=== PATIENT | female | born 1940 | race African-American/Black ===

== ENCOUNTER 2016-05-21 23:15 | Inpatient (IN) ==
[2016-05-22] MEDS ORDERED: SODIUM CHLORIDE 0.9% 500 ML IV STA (00:10)
--- NOTE | 2016-05-22 00:22 | Emergency Department Note ---
Aron Amin Brittany, am scribing for, and in the presence of, Vikash Echeverria MD 00:20. Juwan Amin Charles R, MD, personally performed the services described in this documentation, ascribed by Myah Sharp in my presence, and it is both accurate and complete . Arrival - Arrival Chief Complaint: Syncope ED Nursing Triage Note: C/O "feeling faint" Onset all day today. Pt denies any chest pain/shortness of breath or any other complaints. States she just feel like she is going to faint. Mode of Arrival: Stretcher Limitations: No Limitations Source: Patient, RN Notes Reviewed Time Seen by Provider: 05/22/16 00:00 - History of Present Illness HPI Narrative: Patient is a 75 y/o black female presenting to the ED with c/o syncopal episode earlier today. Family states that patient stated that she felt bad and went to stand up when she fell, unresponsive for about 5 minutes. They state that prior to syncopal episode patient was complaining of dizziness and feeling flushed. As of now patient states that she feels her normal. Daughter notes that earlier this month patient was diagnosed with Esophageal CA. Family reports that patient has not had an adequate PO intake, only liquids, due to difficulty swallowing, secondary to Esophageal CA. Family reports that patient has had some diarrhea, but deny any strange cravings, melena, hematochezia, dysuria, urgency, or frequency. Family states that upon exertion patient does get short- winded. Family reports that patient does have a history of DVT. She is a patient of Dr. Hollins and Dr. Sharp, she has an appointment with both tomorrow -per daughter. No other complaint/pain. Onset (ago): hour(s) Date of Last Menstrual Period: PM Allergies/Adverse Reactions: Allergies Allergy/AdvReac Type Severity Reaction Status Date / Time No Known Allergies Allergy Unverified 05/21/16 23:28 Home Medications: Home Medications Medication Instructions Recorded Confirmed Type Aspirin [Ecotrin] 81 mg PO DAILY 05/21/16 05/21/16 History Atorvastatin [Lipitor] 20 mg PO DAILY 05/21/16 05/21/16 History Calcium (Carb)/Vit D 600-400 1 tablet PO DAILY 05/21/16 05/21/16 History [Caltrate 600 + D] Ergocalciferol (Vitamin D2) 50,000 unit PO Q7D 05/21/16 05/21/16 History [Vitamin D2] Furosemide Tab [Lasix Tab] 40 mg PO DAILY 05/21/16 05/21/16 History HYDROcodone/ACETAMIN 5-325 [[place] 5 mg PO BID 05/21/16 05/21/16 History 5-325] Losartan/Hydrochlorothiazide 1 each PO DAILY 05/21/16 05/21/16 History [Losartan-Hctz 100-25 mg Tab] Pantoprazole Tab [Protonix Tab] 40 mg PO DAILY 05/21/16 05/21/16 History Potassium Chloride [Klor-Con] 40 meq PO BID 05/21/16 05/21/16 History amLODIPine [Norvasc] 10 mg PO DAILY 05/21/16 05/21/16 History Review of System - Review of System 12 point system: reviewed and no additional remarkable complaints except as stated - Review of System Constitutional: Present: other (decreased appetite) Respiratory: Present: respiratory distress Cardiovascular: Present: syncope Gastrointestinal: Present: diarrhea Neurological: Present: vertigo Medical,Surgical,& Family Hx - Medical History Cardio: History of: Hypertension - Social History Smoking Status: Never smoker Frequency of Alcohol Use: None Type of Drug Use: None Exam Vital Signs: Vital Signs Temperature 97.4 F L 05/21/16 23:15 Pulse Rate 83 05/21/16 23:47 Respiratory Rate 18 05/21/16 23:47 Blood Pressure 102/67 05/21/16 23:47 O2 Sat by Pulse Oximetry 97 05/21/16 23:15 - General General appearance: alert, in no apparent distress - Head Head exam: Present: atraumatic, normocephalic - Eye Eye exam: Present: normal appearance, PERRL, EOMI - ENT ENT exam: Present: mucous membranes dry, TM's normal bilaterally. Absent: mucous membranes moist - Neck Neck exam: Present: normal inspection, full ROM, trachea midline - Chest Chest inspection: Present: normal inspection, symmetric chest wall rise - Respiratory Respiratory exam: Present: normal lung sounds bilaterally. Absent: rales, rhonchi, wheezes - Cardiovascular Cardiovascular exam: Present: normal rhythm, bradycardia, normal heart sounds. Absent: regular rate - Abdominal Exam Abdominal exam: Present: soft, normal bowel sounds. Absent: distention, tenderness - Extremities Exam Extremities exam: Present: full ROM, pedal edema (+3) - Back Exam Back exam: Present: normal inspection, full ROM - Neurological Exam Neurological exam: Present: alert, oriented X3, CN II-XII intact. Absent: motor sensory deficit - Psychiatric Psychiatric exam: Present: flat affect - Skin Skin exam: Present: warm, dry Course - Consultations Consultation #1: Dr. Hammond will admit patient Time: 01:37 Results - Labs CBC & BMP: 05/22/16 00:09 05/22/16 00:09 Lab Results: I have reviewed the patients labs Labs: Laboratory Tests 05/22/16 00:09 Sodium 135 L Potassium 2.3 L* Chloride 92 L Carbon Dioxide 31 Anion Gap 14.3 BUN 5 L Creatinine 0.80 GFR Calculation 84 BUN/Creatinine Ratio 6.00 Glucose 146 H Calculated Osmolality 269.1 L Calcium 8.6 Magnesium 1.3 L Total Bilirubin 0.60 AST 24 ALT 18 Alkaline Phosphatase 54 Troponin I < 0.015 Total Protein 7.9 Albumin 3.0 L Globulin 4.9 H Albumin/Globulin Ratio 0.6 L Laboratory Tests 05/22/16 00:09 WBC 6.3 RBC 4.03 Hgb 10.1 L Hct 31.7 L MCV 78.7 L MCH 25 L MCHC 31.9 L RDW 15.2 Plt Count 319 MPV 9.2 L Neut % (Auto) 57.0 Lymph % (Auto) 29.9 Garrett % (Auto) 10.9 Eos % (Auto) 1.6 Baso % (Auto) 0.3 Neut # (Auto) 3.6 Lymph # (Auto) 1.9 Garrett # (Auto) 0.7 Eos # (Auto) 0.1 Baso # (Auto) 0.0 Immature Gran % 0.3 Nucleated RBC % 0.0 Immature Gran # 0.02 Nucleated RBCs # 0.00 Laboratory Tests 05/22/16 00:50 POC Glucose 159 H Critical Care Time Critical Care Time: Yes Total Critical Care Time: 60 Disposition Clinical Impression: Vasovagal syncope, Pulmonary embolism, Esophageal mass, Hypokalemia, Hypomagnesemia Case discussed with: patient, patient's family Disposition: Still a Patient Condition: Guarded Time of Disposition: 01:38
[2016-05-22 00:34] LABS: Alanine Aminotransferase 18 U/L (13-56); Alkaline Phosphatase 54 U/L (45-117); Aspartate Amino Transferase 24 U/L (0-37); Blood Urea Nitrogen 5 MG/DL (7-18); Calcium 8.6 MG/DL (8.5-10.1); Glucose 146 MG/DL (74-106); Magnesium 1.3 MG/DL (1.8-2.4); Osmolality,Calculated 269.1 MOS/KG (273-304); Sodium 135 MMOL/L (136-145); Total Protein 7.9 G/DL (6.4-8.3); Troponin I Only < 0.015 NG/ML (0.00-0.045)
[2016-05-22 00:35] LABS: Potassium 2.3 MMOL/L (3.5-5.1)
[2016-05-22 00:37] LABS: Basophils % 0.3 % (0.0-0.8); Eosinophils # 0.1 10*3/uL (0.0-0.87); Eosinophils % 1.6 % (0.00-10.9); Hematocrit 31.7 VOL% (35.7-47.0); Hemoglobin 10.1 GM/DL (12.0-16.0); Immature Granulocytes % 0.3 %; Immature Granulocytes Absolute 0.02 #; Lymphocytes # 1.9 10*3/uL (1.4-4.0); Lymphocytes % 29.9 % (21.3-54.2); Mean Corpuscular HGB Conc 31.9 GM/DL (32-36); Mean Corpuscular Hemoglobin 25 PG (27-34); Mean Corpuscular Volume 78.7 FL (87-102); Mean Platelet Volume 9.2 FL (9.6-12.0); Monocytes # 0.7 10*3/uL (0.11-0.8); Monocytes % 10.9 % (1.7-12.7); Neutrophils # 3.6 10*3/uL (1.4-7.4); Platelet Count 319 T/CUMM (130-400); Red Blood Count 4.03 MC/CUMM (3.8-5.5); Red Cell Distribution Width 15.2 % (9.3-17.3); White Blood Count 6.3 T/CUMM (4-12)
[2016-05-22] MEDS ORDERED: POTASSIUM CHLORIDE 20 MEQ TABLET PO STA (01:39)
[2016-05-22] MEDS ORDERED: MAGNESIUM SULF RIDER 2 GM in PREMIX 1 EACH IV STA (01:39)
[2016-05-22] MEDS ORDERED: POTASSIUM CHLORIDE RIDER 20 MEQ in PREMIX 1 EACH IV STA ×2 (01:39→03:28)
[2016-05-22] MEDS ORDERED: ENOXAPARIN 100 MG/ML SYRINGE SUBCUT STA (01:43)
[2016-05-22] MEDS ORDERED: ONDANSETRON 4 MG/2 ML VIAL IV PRN (01:54)
[2016-05-22] MEDS ORDERED: ZALEPLON 5 MG CAPSULE PO PRN (01:54)
[2016-05-22] MEDS ORDERED: POTASSIUM CHLORIDE RIDER 200 ML IV SCH (02:00)
[2016-05-22] MEDS ORDERED: POTASSIUM CHLORIDE 20 MEQ TABLET PO ONE (02:00)
--- NOTE | 2016-05-22 02:02 | Hospitalist History & Physical ---
Assessment and Plan (1) Syncope Status: Acute Assessment and plan: work up underway. could be vasovagal from esophageal mass vs PE related Current Visit: Yes Qualifiers: Encounter type: initial encounter (2) Pulmonary embolism Status: Acute Assessment and plan: start LMWH SQ BID Consult Heme/Onc Current Visit: Yes Qualifiers: Chronicity: acute (3) Esophageal mass Status: Acute Current Visit: Yes (4) Hypokalemia Status: Acute Assessment and plan: replacement ordered Current Visit: Yes (5) Hypomagnesemia Status: Acute Assessment and plan: replaced Current Visit: Yes History of Present Illness Chief complaint: syncope History of present illness: Ms. Melendez is a 75 year old female presenting to the ED with c/o syncopal episode earlier today. Family states that patient stated that she felt bad and went to stand up when she fell, unresponsive for about 5 minutes. They state that prior to syncopal episode patient was complaining of dizziness and feeling flushed. As of now patient states that she feels back to normal. Daughter notes that earlier this month patient was diagnosed with Esophageal CA. Family reports that patient has not had adequate PO intake, only liquids, due to difficulty swallowing, secondary to Esophageal CA. Family reports that patient has had some diarrhea, but deny any strange cravings, melena, hematochezia, dysuria, urgency, or frequency. Family states that upon exertion patient does get short- winded. Family reports that patient does have a history of DVT. She is a patient of Dr. Hollins and Dr. Sharp, she has an appointment with both tomorrow -per daughter. No other complaint/pain. Home Medications Medication Instructions Recorded Confirmed Type Aspirin [Ecotrin] 81 mg PO DAILY 05/21/16 05/22/16 History Atorvastatin [Lipitor] 20 mg PO DAILY 05/21/16 05/22/16 History Calcium (Carb)/Vit D 600-400 1 tablet PO DAILY 05/21/16 05/22/16 History [Caltrate 600 + D] Ergocalciferol (Vitamin D2) 50,000 unit PO Q7D 05/21/16 05/22/16 History [Vitamin D2] Furosemide Tab [Lasix Tab] 40 mg PO DAILY 05/21/16 05/22/16 History HYDROcodone/ACETAMIN 5-325 [[place] 5 mg PO BID PRN 05/21/16 05/22/16 History 5-325] Losartan/Hydrochlorothiazide 1 each PO DAILY 05/21/16 05/22/16 History [Losartan-Hctz 100-25 mg Tab] Pantoprazole Tab [Protonix Tab] 40 mg PO DAILY 05/21/16 05/22/16 History Potassium Chloride [Klor-Con] 20 meq PO BID 05/21/16 05/22/16 History amLODIPine [Norvasc] 10 mg PO DAILY 05/21/16 05/22/16 History Allergies Allergy/AdvReac Type Severity Reaction Status Date / Time No Known Allergies Allergy Unverified 05/21/16 23:28 Medical,Surgical,& Family Hx - Medical History Cardio: History of: Hypertension - Surgical History Reproductive Surgeries: Surgical HX of;: Breast Surgery, Hysterectomy - Family History Family History: Reports;: Family Hypertension Denies;: Family Cancer - Social History Smoking Status: Never smoker Have you smoked in the last 12 months: No Frequency of Alcohol Use: None Type of Drug Use: None 12 point system: reviewed and no additional remarkable complaints except as stated - Cardiovascular Cardiovascular: Present: dyspnea, lightheadedness Exam - Constitutional Vitals: Period Temp Pulse Resp BP Sys/Nava Pulse Ox Last 24 Hr 97.4 F-97.4 F 74-83 18-18 102-115/67-77 97 General appearance: no acute distress - Head Head exam: Present: normal inspection, normocephalic, atraumatic - Eye Eye exam: Present: EOMI Pupils: Present: CAIO - ENT ENT exam: Present: normal exam, normal oropharynx - Neck Neck exam: Present: normal inspection - Respiratory Respiratory exam: Present: clear to auscultation bilaterally - Cardiovascular Cardiovascular exam: Present: regular rate and rhythm - GI/Abdominal GI/Abdominal exam: Present: normal bowel sounds, soft. Absent: tenderness, rebound - Extremities Exam Extremities exam: Present: normal inspection, edema - Neurological Exam Neurological exam: Present: alert, oriented X3 - Psychiatric Psychiatric exam: Present: normal affect, normal mood - Skin Skin exam: Present: normal color, warm, dry Results - Labs CBC & BMP: 05/22/16 00:09 05/22/16 00:09 Lab Results: I have reviewed the past 24 hour labs
[2016-05-22 02:16] LABS: INR 1.2; PT Patient Result 12.4 SECS; Partial Thromboplastin Time 28.9 SECS (0-40)
[2016-05-22 02:21] LABS: Apearance,Urine Clear (Clear); Glucose,Urine (UA) Negative (Negative); Ketones,Urine Negative (Negative); Protein,Urine Negative; Urine Color Straw (Yellow); Urine Specific Gravity 1.005 (1.001-1.035)
[2016-05-22 02:22] LABS: Bilirubin,Urine Negative (Negative); Blood, Urine Negative (Negative); Nitrite,Urine Negative (Negative); RBC,Urine 1 /HPF (0-4); Squamous Epithelial Cell,Urine Occasional /HPF (0-10); Urine Urobilinogen 0.2 EU/DL (0.2-1.0); WBC,Urine 1 /HPF (0-6)
[2016-05-22] MEDS ORDERED: POTASSIUM CHLORIDE RIDER 100 ML IV ONE ×2 (02:51→03:38)
[2016-05-22] MEDS: SODIUM CHLORIDE 0.9% 1,000 ML IV SCH ×3 (04:30→21:26)
[2016-05-22] MEDS: ENOXAPARIN 80 MG/0.8 ML SYRINGE SUBCUT SCH ×2 (04:38→13:47)
[2016-05-22] MEDS ORDERED: AMIODARONE INJ 450 MG in DEXTROSE 5% 241 ML IV SCH ×2 (05:30→11:00)
[2016-05-22 06:09] LABS: Basophils % 0.2 % (0.0-0.8); Eosinophils % 0.2 % (0.00-10.9); Hematocrit 30.1 VOL% (35.7-47.0); Hemoglobin 9.7 GM/DL (12.0-16.0); Immature Granulocytes % 0.2 %; Immature Granulocytes Absolute 0.01 #; Lymphocytes # 1.3 10*3/uL (1.4-4.0); Mean Corpuscular HGB Conc 32.2 GM/DL (32-36); Mean Corpuscular Hemoglobin 25 PG (27-34); Mean Corpuscular Volume 77.2 FL (87-102); Mean Platelet Volume 8.8 FL (9.6-12.0); Monocytes # 0.4 10*3/uL (0.11-0.8); Monocytes % 8.7 % (1.7-12.7); Neutrophils # 3.1 10*3/uL (1.4-7.4); Neutrophils % 63.7 % (38.7-73.9); Platelet Count 303 T/CUMM (130-400); Red Cell Distribution Width 15.2 % (9.3-17.3); White Blood Count 4.8 T/CUMM (4-12)
--- NOTE | 2016-05-22 06:10 | XRay Report ---
Exam: XR chest 1V portable Date: 05/22/2016 12:11 AM Indication: Shortness of breath Comparison: None Technical: AP portable Findings: Cardiomegaly is present in the midinspiratory exam. Lateral marginal osteophytes are present. ASVD present. Small calcification calcified nodes present perihilar regions. Arthritic change present over the shoulders left greater than right. External cardiac leads are present. Minimal basilar atelectatic change. Impression: 1 Cardiomegaly without overt decompensation with minimal basilar atelectatic change on the left. 2. Arthritic change of the left shoulder PROCEDURE INTERPRETED AT [facility] DEPARTMENT OF RADIOLOGY Final Report Signed by: Dr. Beka Lucas
[2016-05-22 06:50] LABS: Calcium 8.6 MG/DL (8.5-10.1); Magnesium 1.8 MG/DL (1.8-2.4); Osmolality,Calculated 277.3 MOS/KG (273-304); Potassium 2.7 MMOL/L (3.5-5.1)
--- NOTE | 2016-05-22 06:55 | CT Report ---
CT brain Indication: Syncope Comparison: None available Technique: Axial CT imaging of the brain is performed without contrast with 3 mm increments. Findings: No evidence of hemorrhage, mass mass effect midline shift or acute infarct seen. The brain parenchyma attenuation and differentiation appears within normal limits. The ventricles and cisterns are normal in caliber. Defects are present involving the superior parietal bones bilaterally right greater than left. Sphenoid sinus disease is present. No other cranial or skull base abnormality is identified. Impression: No evidence of acute intracranial process demonstrated. Sphenoid sinus disease. PROCEDURE INTERPRETED AT [facility] DEPARTMENT OF RADIOLOGY Final Report Signed by: Dr. Petros Duckworth
--- NOTE | 2016-05-22 07:10 | CT Report ---
CT chest pulmonary embolism Indication: Chest pain Comparison: None available Technique: Axial CT imaging of the chest is performed with intravenous contrast. Contrast dose is 80 cc of Omnipaque 350. Findings: Small amount of filling defect are seen in the branches of the right pulmonary artery that extends into the right lower lobe. No other thrombus or other abnormality is identified in the pulmonary arteries or veins. The pulmonary vessel caliber is within normal limits. There is irregular thickening of the midesophagus with fluid level present on the proximal esophagus. There is suggestion of invasion into the azygos vein. Small amounts of air space density seen in the dependent lower lungs slightly more on the right. Remaining pulmonary parenchyma shows no evidence of airspace disease or abnormal density. No effusion or pneumothorax is present. Impression: Small amounts of pulmonary temporal embolism in the right lower lobe small amount of thromboembolism seen in the right lower lobe pulmonary arterial branches. Irregular thickening of the mid thoracic esophagus with suggestion of extension into and/or thrombus of the azygos vein. PROCEDURE INTERPRETED AT [facility] DEPARTMENT OF RADIOLOGY Final Report Signed by: Dr. Petros Duckworth
--- NOTE | 2016-05-22 07:23 | EKG Report ---
Stationary ECG Study [facility] ER Test Date: 05/21/2016 11:24:20 PM Pat Name: KARI LONGORIA Department: Room: 516 Gender: F [employer] Machinist: : 1940 Requested by: Vikash Rodriguez Order Number: [id number] Reading MD: ARJUN CONNER Intervals [place] Rate: 65 P: 26 MT: 223 QRS: -28 QRSD: 98 T: -21 QT: 457 QTc: 469 Interpretive Statements SINUS RHYTHM WITH PROLONGED MT INTERVAL BORDERLINE LEFT AXIS DEVIATION Electronically Signed On 05-22-16 23:07:15 [employer] by ARJUN CONNER [email or web address]
[2016-05-22] MEDS: ASPIRIN EC 81 MG TABLET PO SCH (08:30)
[2016-05-22] MEDS: CALCIUM (CARBONATE)/VITAMIN D 600 MG-400 UNIT TABLET PO SCH (08:32)
[2016-05-22] MEDS: POTASSIUM CHLORIDE 20 MEQ PACK PO SCH ×2 (08:32→21:20)
[2016-05-22] MEDS: amLODIPine 10 MG TABLET PO SCH (08:33)
[2016-05-22] MEDS: ATORVASTATIN 20 MG TABLET PO SCH (08:33)
[2016-05-22] MEDS: MAGNESIUM OXIDE 400 MG TABLET PO SCH ×2 (08:33→21:20)
[2016-05-22] MEDS: PANTOPRAZOLE 40 MG TABLET PO SCH (08:37)
--- NOTE | 2016-05-22 08:55 | Oncology Progress Note ---
Oncology Subjective PN Interval history: Consult for esophageal cancer. This morning was my initial visit with patient. She was alone in the room as her daughter had already left. She was actually scheduled to see me in the office today along with a radiotherapy consultation. I have reviewed the available electronic records which are limited to yesterday's presentation. The patient was unable to give the name of her referring physician. She is a resident of [place]. She denies medical history other than hypertension. Surgical history is limited to hysterectomy. She has lost quite a bit of weight but was unable to directly quantify. She is having dysphagia to solid foods. Again there is no pathology report or other records prior to yesterday. CT chest is notable for pulmonary embolism. She also has anemia and hypokalemia. She appears nontoxic this morning and is on a pure diet. We did discuss the possibility of a gastric feeding tube. At this point I would recommend treating her acute issues and we will reschedule her in the outpatient clinic for close follow-up and initiation of what will most likely be definitive chemoradiation. Exam - Constitutional Vitals: Period Temp Pulse Resp BP Sys/Nava Pulse Ox Last 24 Hr 98 F 84 20 120/80 97 Results - Labs CBC & BMP: 05/22/16 05:58 05/22/16 05:57
[2016-05-22] MEDS ORDERED: ERGOCALCIFEROL 50,000 UNIT CAPSULE PO SCH (09:00)
--- NOTE | 2016-05-22 11:41 | Hospitalist Progress Note ---
<Dena Nielsen - Last Filed: 05/22/16 12:46> Assessment and Plan - Time spent with patient Time spent with patient: Less than 30 minutes (due to assessment, plan and documentation.) (1) Esophageal mass Status: Acute Assessment and plan: Dr. Hollins was consulted and saw yesterday and will follow up in the OP setting. Current Visit: Yes (2) Hypokalemia Status: Acute Assessment and plan: has been replaced- K now 2.7 Current Visit: Yes (3) Hypomagnesemia Status: Acute Current Visit: Yes (4) Pulmonary embolism Status: Acute Assessment and plan: on lovenox Current Visit: Yes Qualifiers: Chronicity: acute (5) Syncope Status: Acute Current Visit: Yes Qualifiers: Encounter type: initial encounter (6) Vasovagal syncope Status: Acute Current Visit: Yes Hospitalist: Subjective Interval history: Ms. Melendez was seen on rounds today lying in bed about to get her ECHO. She was admitted yesterday for syncope; PE; esophgeal mass, and hypokalemia. Her potassium was replaced and is up to 2.[address] Hollins was consulted for esophageal cancer. He saw her in consultation, and will follow up as an outpatient after her acute issues have resolved. She denies any chest pain, shortness of breath. She is still having some problems with dysphagia. We will continue to follow along with oncology. Exam - Constitutional Vitals: Period Temp Pulse Resp BP Sys/Nava Pulse Ox Last 24 Hr 97.7 F-98 F 72-84 18-20 118-120/73-80 97-97 General appearance: normal weight, no acute distress - Head Head exam: Present: normal inspection, normocephalic - Eye Eye exam: Present: EOMI. Absent: scleral icterus Pupils: Present: CAIO, normal accommodation - ENT ENT exam: Present: normal exam, normal oropharynx - Neck Neck exam: Present: normal inspection. Absent: lymphadenopathy - Respiratory Respiratory exam: Present: clear to auscultation bilaterally. Absent: accessory muscle use - Cardiovascular Cardiovascular exam: Present: regular rate and rhythm - GI/Abdominal GI/Abdominal exam: Present: normal bowel sounds, soft. Absent: tenderness - Extremities Exam Extremities exam: Present: normal inspection. Absent: edema - Back Exam Back exam: Present: normal inspection. Absent: muscle spasm - Neurological Exam Neurological exam: Present: alert, oriented X3 - Psychiatric Psychiatric exam: Present: normal affect, normal mood - Skin Skin exam: Present: normal color, warm, dry, intact Results - Labs CBC & BMP: 05/22/16 05:58 05/22/16 05:57 Lab Results: I have reviewed the past 24 hour labs <Nate Aviles Jr. - Last Filed: 05/22/16 15:47> Assessment and Plan (1) Esophageal mass Status: Acute Current Visit: Yes (2) Hypokalemia Status: Acute Assessment and plan: Potassium 40 mEq p.o. by mouth twice daily repeat BMP with mag in a.m. Current Visit: Yes (3) Syncope Status: Acute Current Visit: Yes Qualifiers: Encounter type: initial encounter Hospitalist: Subjective Interval history: The patient continues to do acceptable. She feels better. No dizziness. No shortness of breath. Serum potassium noted to be low at 2.8. This is being supplemented. At this time will observe for an additional 24 hours continue with potassium supplementation repeat BMP with a magnesium in a.m. If patient remains stable then should be able to be discharged tomorrow. Exam - Constitutional Vitals: Period Temp Pulse Resp BP Sys/Nava Pulse Ox Last 24 Hr 97.7 F-98 F 60-84 18-20 110-120/73-80 97-97 Results - Labs CBC & BMP: 05/22/16 05:58 05/22/16 05:57
--- NOTE | 2016-05-22 18:31 | ECHO Report ---
Al Deejaypoornimacandi Exam Date: 05/22/2016 10:10 Referring Physician: Technologist: Beth BUTLER Age: 75 Ht (in): Wt (lb): Gender: F Exam Location: [facility] Echo Indications: syncope, PE, Hypokalemia BP: / HR: Rhythm: Sinus Technical Quality: IMPRESSIONS Normal left ventricular size, with mild concentric hypertrophy, with abnormal septal motion, normal systolic thickening. Estimated left ventricle ejection fraction 55%. Grade 1 diastolic dysfunction. Mild biatrial enlargement. Right ventricular wall motion abnormalities consistent with hemodynamically significant pulmonary emboli. Mild mitral regurgitation. Aortic valve sclerosis, without stenosis. Mild pulmonic valve insufficiency. MEASUREMENTS (Male / Female) Normal Values 2D ECHO LV Diastolic Diameter PLAX 3.4 cm 4.2 - 5.9 / 3.9 - 5.3 cm LV Systolic Diameter PLAX 2.3 cm LV Fractional Shortening PLAX 32.4 % IVS Diastolic Thickness 1.4 cm 0.6 - 1.0 / 0.6 - 0.9 cm LVPW Diastolic Thickness 1.1 cm 0.6 - 1.0 / 0.6 - 0.9 cm RV Internal Dim ED PLAX 3.0 cm Aortic Root Diameter 2.9 cm LA Systolic Diameter LX 2.9 cm 3.0 - 4.0 / 2.7 - 3.8 cm DOPPLER TR Peak Velocity 244.0 cm/s TR Peak Gradient 23.8 mmHg FINDINGS Left Ventricle Normal left ventricular size, with mild concentric hypertrophy, with abnormal septal motion, normal systolic thickening. Estimated left ventricle ejection fraction 55%. Grade 1 diastolic dysfunction. Right Ventricle Moderately increased right ventricular size. The mid lateral wall is hypokinetic, the apex has normal motion, positive Reyna's sign. Right Atrium The right atrium is mildly enlarged. Left Atrium The left atrium is mildly enlarged. Mitral Valve Mildly thickened mitral valve with mild mitral regurgitation. Aortic Valve Aortic valve sclerosis without stenosis. Trace aortic valve regurgitation. Tricuspid Valve Morphologically normal tricuspid valve. Mild tricuspid valve regurgitation. Tricuspid regurgitation velocities suggest a PAP of 23.8 mmHg + RAP. Pulmonic Valve Morphologically normal pulmonic valve. Mild pulmonary valve regurgitation. Pericardium No pericardial effusion. Aorta Normal size aortic root and proximal ascending aorta. Shamar Parker (Electronically Signed) Final Date: 22 May 2016 18:27
[2016-05-22] MEDS: POTASSIUM CHLORIDE 20 MEQ TABLET PO SCH (21:19)
[2016-05-23] MEDS: ENOXAPARIN 80 MG/0.8 ML SYRINGE SUBCUT SCH (01:22)
[2016-05-23] MEDS: SODIUM CHLORIDE 0.9% 1,000 ML IV SCH ×2 (05:38→10:14)
[2016-05-23 05:48] LABS: Calcium 8.1 MG/DL (8.5-10.1); Magnesium 1.6 MG/DL (1.8-2.4); Osmolality,Calculated 283.7 MOS/KG (273-304); Potassium 3.3 MMOL/L (3.5-5.1)
--- NOTE | 2016-05-23 08:58 | Hospitalist Progress Note ---
<Dena Nielsen - Last Filed: 05/23/16 08:48> Assessment and Plan (1) Esophageal mass Status: Acute Assessment and plan: Dr. Hollins was consulted and saw yesterday and will follow up in the OP setting. Current Visit: Yes (2) Hypokalemia Status: Acute Assessment and plan: has been replaced- K now 3.3 Current Visit: Yes (3) Hypomagnesemia Status: Acute Current Visit: Yes (4) Pulmonary embolism Status: Acute Assessment and plan: on lovenox Current Visit: Yes Qualifiers: Chronicity: acute (5) Syncope Status: Acute Current Visit: Yes Qualifiers: Encounter type: initial encounter (6) Vasovagal syncope Status: Acute Current Visit: Yes Hospitalist: Subjective Interval history: Ms. Melendez was seen on rounds today still asleep. She awakens easily. Her potassium is still slightly low at 3.3. ECHO yesterday showed EF 55% with grade 1 diastolic dysfunction. She was admitted with syncope, hypokalemia and pulmonary embolus. She also had hypomagnesemia. She is at 1.6 today. Hope to discharge soon. Labs in AM. Exam - Constitutional Vitals: Period Temp Pulse Resp BP Sys/Nava Pulse Ox Last 24 Hr 97.4 F-98.0 F 60-82 16-18 93-140/60-78 94-100 General appearance: normal weight, no acute distress - Head Head exam: Present: normal inspection, normocephalic - Eye Eye exam: Present: EOMI. Absent: scleral icterus Pupils: Present: CAIO, normal accommodation - ENT ENT exam: Present: normal exam, normal oropharynx - Neck Neck exam: Present: normal inspection. Absent: lymphadenopathy - Respiratory Respiratory exam: Present: clear to auscultation bilaterally. Absent: accessory muscle use - Cardiovascular Cardiovascular exam: Present: regular rate and rhythm - GI/Abdominal GI/Abdominal exam: Present: normal bowel sounds. Absent: tenderness - Extremities Exam Extremities exam: Present: normal inspection. Absent: edema - Back Exam Back exam: Present: normal inspection. Absent: muscle spasm - Neurological Exam Neurological exam: Present: alert, oriented X3 - Psychiatric Psychiatric exam: Present: normal affect, normal mood - Skin Skin exam: Present: normal color, warm, dry, intact Results - Labs CBC & BMP: 05/22/16 05:58 05/23/16 04:34 Lab Results: I have reviewed the past 24 hour labs <Nate Aviles Jr. - Last Filed: 05/23/16 13:26> Assessment and Plan (1) Esophageal mass Status: Chronic Current Visit: Yes (2) Hypokalemia Status: Acute Current Visit: Yes (3) Syncope Status: Resolved Current Visit: Yes Qualifiers: Encounter type: initial encounter Hospitalist: Subjective Interval history: Patient is eager to go home serum potassium is improving we will give potassium 40 mEq p.o. now. Also was switched to Xarelto 50 mg p.o. twice daily for patient's underlying PE. She is to follow-up with Dr. Hollins in 1 week. Exam - Constitutional Vitals: Period Temp Pulse Resp BP Sys/Nava Pulse Ox Last 24 Hr 97.4 F-98.0 F 67-82 16-18 93-140/60-78 94-100 Results - Labs CBC & BMP: 05/22/16 05:58 05/23/16 04:34
[2016-05-23] MEDS: CALCIUM (CARBONATE)/VITAMIN D 600 MG-400 UNIT TABLET PO SCH (10:04)
[2016-05-23] MEDS: ASPIRIN EC 81 MG TABLET PO SCH (10:04)
[2016-05-23] MEDS: POTASSIUM CHLORIDE 20 MEQ TABLET PO SCH (10:05)
[2016-05-23] MEDS: MAGNESIUM OXIDE 400 MG TABLET PO SCH (10:05)
[2016-05-23] MEDS: ATORVASTATIN 20 MG TABLET PO SCH (10:05)
[2016-05-23] MEDS: amLODIPine 10 MG TABLET PO SCH (10:05)
[2016-05-23] MEDS: PANTOPRAZOLE 40 MG TABLET PO SCH (10:06)
[2016-05-23] MEDS: POTASSIUM CHLORIDE 20 MEQ PACK PO SCH (10:11)
[2016-05-23 11:01] VITALS: BP 104/73
[2016-05-23] MEDS ORDERED: POTASSIUM CHLORIDE 20 MEQ TABLET PO ONE (12:35)
--- NOTE | 2016-05-23 12:39 | Discharge Summary ---
Hospital Course - Hospital Course Hospital Course: This hospitalization included patient admitted for weakness and falls she was found to have a low serum potassium. Within a 24-hour period she continued to show signs of improvement she responded nicely to IV fluids. She was not hypotensive. Serum potassium was supplemented with IV as well as p.o. preparations. She remained hemodynamically stable. This hospitalization also included a consultation with Dr. Ornelas history of esophageal cancer. The patient continued to do well. He recommended further follow-up on outpatient basis. Patient's last serum potassium was 3.3 she got another dose of potassium by mouth. And at this time is prepared for discharge. She will follow-up with Dr. Hollins as scheduled. Continue follow-up with her primary provider. - Time spent with patient Time with patient DS: Greater than 30 minutes Diagnosis - Discharge Diagnosis (1) Esophageal mass Status: Chronic (2) Hypokalemia Status: Acute (3) Syncope Status: Resolved Discharge Plan - Discharge Data Disposition: Disch To Home/Self Care Condition at Discharge: Stable Discharge Diet: advance to your usual diet Activity: resume usual activities as tolerated Hygiene: no restrictions - Discharge Medications Continue Atorvastatin [Lipitor] 20 mg PO DAILY Losartan/Hydrochlorothiazide [Losartan-Hctz 100-25 mg Tab] 1 each PO DAILY Calcium (Carb)/Vit D 600-400 [Caltrate 600 + D] 1 tablet PO DAILY amLODIPine [Norvasc] 10 mg PO DAILY HYDROcodone/ACETAMIN 5-325 [[place] 5-325] 5 mg PO BID PRN PRN Reason: Pain Furosemide Tab [Lasix Tab] 40 mg PO DAILY Aspirin [Ecotrin] 81 mg PO DAILY Potassium Chloride [Klor-Con] 20 meq PO BID Pantoprazole Tab [Protonix Tab] 40 mg PO DAILY Ergocalciferol (Vitamin D2) [Vitamin D2] 50,000 unit PO Q7D - Follow Up or Referral - Forms/Instructions Additional Discharge Instructions: Keep follow-up appointment with Dr. Hollins as scheduled. Follow up with primary provider in 1 week with a BMP. Exam - Constitutional Vitals: Period Temp Pulse Resp BP Sys/Nava Pulse Ox Last 24 Hr 97.4 F-98.0 F 67-82 16-18 93-140/60-78 94-100 General appearance: under weight - Head Head exam: Present: normal inspection - Eye Eye exam: Present: EOMI Pupils: Present: CAIO - Respiratory Respiratory exam: Present: clear to auscultation bilaterally - Cardiovascular Cardiovascular exam: Present: regular rate and rhythm - GI/Abdominal GI/Abdominal exam: Present: normal bowel sounds - Extremities Exam Extremities exam: Present: full ROM - Neurological Exam Neurological exam: Present: alert, oriented X3, CN II-XII intact - Psychiatric Psychiatric exam: Present: normal affect Discharge Results Procedures and tests throughout hospitalization: Pending Orders 05/24/16 04:00 CMP [Comprehensive Metabolic Panel] IN AM Labs on day of discharge: Labs from last 24 hours 05/23/16 04:34 Sodium 145 Potassium 3.3 L Chloride 107 Carbon Dioxide 29 Anion Gap 12.3 BUN 3 L Creatinine 0.50 L GFR Calculation 120 BUN/Creatinine Ratio 6.00 Glucose 74 Calculated Osmolality 283.7 Calcium 8.1 L Magnesium 1.6 L DS: Provider Date of admission: 05/22/16 01:54 Primary care physician: . No PCP Attending physician on admission: Nate Aviles Jr., MD Consults: 05/22/16 02:06 Consult to Physician [CONS] Routine Comment: esophageal ca, PE, Syncope Consulting Provider: Sushil Hollins Date Notified: 05/22/16 Time Notified: 09:29 Consult Notification Comment: aware 05/22/16 04:17 Consult to Dietitian [CONS] Routine Reason for Dietitian: Diet Recommendations Discharging clinician: Nate Aviles Jr., MD
[2016-05-23] MEDS ORDERED: RIVAROXABAN 15 MG TABLET PO SCH (17:00)
[2016-05-23] MEDS ORDERED: WARFARIN 5 MG TABLET PO SCH (18:00)
== END 2016-05-23 15:01 | disposition home or self-care (01) | DRG 640 ==
LOC: N.ED 23:15 → N.EDINP 05-22 01:54 → N.5E 05-22 03:59
PROVIDERS: ADMIT Internal Medicine Nephrology; ATTEND Internal Medicine Nephrology

== ENCOUNTER 2016-06-30 20:41 | Inpatient (IN) ==
[2016-06-30] MEDS ORDERED: PANTOPRAZOLE 40 MG VIAL IV STA (22:05)
[2016-06-30] MEDS ORDERED: ONDANSETRON 4 MG/2 ML VIAL IV STA (22:05)
--- NOTE | 2016-06-30 22:09 | Emergency Department Note ---
Arrival - Arrival Chief Complaint: GI Bleed/Rectal Stated Complaint: blood in feeding tube,spitting up blood ED Nursing Triage Note: c/c spitting up blood, blood in peg tube started tonight. Has CA in esophagus. Mode of Arrival: Wheelchair Limitations: No Limitations Source: Patient, Family - History of Present Illness HPI Narrative: This 75-year-old black female with esophageal CA presents for the third time in 6 days with yet another complaint. She states that earlier today she was spitting up red blood and that her feeding tube material has turned pink. She does not complain of any pain. She has begun the medications given her yesterday for her bronchitis. She does not appear to be in any distress. Onset (ago): hour(s) (Onset of symptoms 4 hours prior to presentation) Allergies/Adverse Reactions: Allergies Allergy/AdvReac Type Severity Reaction Status Date / Time No Known Allergies Allergy Verified 06/30/16 21:06 Home Medications: Home Medications Medication Instructions Recorded Confirmed Type Aspirin [Ecotrin] 81 mg PEG DAILY 05/21/16 06/23/16 History Atorvastatin [Lipitor] 20 mg PEG DAILY 05/21/16 06/23/16 History Calcium (Carb)/Vit D 600-400 1 tablet PEG DAILY 05/21/16 06/23/16 History [Caltrate 600 + D] Ergocalciferol (Vitamin D2) 50,000 unit PEG Q7D 05/21/16 06/23/16 History [Vitamin D2] HYDROcodone/ACETAMIN 5-325 [[place] 5 mg PEG BID PRN 05/21/16 06/23/16 History 5-325] Pantoprazole Tab [Protonix Tab] 40 mg PEG DAILY 05/21/16 06/23/16 History Potassium Chloride [Klor-Con] 20 meq PEG BID 05/21/16 06/23/16 History Docusate Sodium Cap [Colace Cap] 100 mg PEG DAILY PRN 06/11/16 06/23/16 History Rivaroxaban [Xarelto] 15 mg PEG BID 06/11/16 06/23/16 History Sulfameth/Trimeth Liquid [Bactrim 20 ml PEG BID #400 ml 06/23/16 Rx Susp] Albuterol Inhaler [Proventil 2 puff INH Q6H PRN #1 inhaler 06/29/16 Rx Inhaler] Cefdinir Liquid [Omnicef Liquid] 500 mg PO BID #400 ml 06/29/16 Rx prednisoLONE [Prelone Syrup] 15 mg PO DAILY #75 ml 06/29/16 Rx Review of System - Review of System 12 point system: reviewed and no additional remarkable complaints except as stated - Review of System Gastrointestinal: Present: as per HPI Medical,Surgical,& Family Hx - Medical History Cardio: History of: Hypertension Neurology: No history of: Seizures Respiratory: History of: Respiratory Problems (blood clot in lung 04/2016) Gastrointestinal: History of: Gastrointestinal Cancer (esophgeal CA), GI Problems (PEG tube) Other: History of: Cancer (esophagus) - Surgical History Abdominal Surgeries: Surgical HX of: EGD (esophageal ca) Reproductive Surgeries: Surgical HX of;: Breast Surgery (Biopsy), Hysterectomy - Family History Family History: Reports;: Family Hypertension Denies;: Family Cancer - Social History Smoking Status: Never smoker Frequency of Alcohol Use: None Type of Drug Use: None Exam Physical Examination: GENERAL: Well developed, well nourished black female in no acute distress. HEENT: Normocephalic. No trauma. Moist mucous membranes. EOMI. PERRLA. ENT NML NECK: Supple. No adenopathy. CARDIAC: Regular. No murmurs. Heart rate 99 CHEST: Clear to auscultation. No respiratory distress. O2 sat 99 ABDOMEN: Soft. Nontender. Active bowel sounds. Feeding tube noted and with pink material in the tubing EXTREMITIES: No trauma. Generally weak and in a wheelchair but normal ROM. No pedal edema. SKIN: No diaphoresis. No rash. NEURO: Alert. Oriented to person place not so well time. Motor, sensory, vibratory intact no focal deficits. Vital Signs: Vital Signs Temperature 99 F 06/30/16 20:59 Pulse Rate 73 06/30/16 20:59 Respiratory Rate 16 06/30/16 20:59 Blood Pressure 129/83 06/30/16 20:59 O2 Sat by Pulse Oximetry 99 06/30/16 20:59
[2016-06-30 22:58] LABS: Basophils % 0.1 % (0.0-0.8); Hematocrit 28.8 VOL% (35.7-47.0); Hemoglobin 9.3 GM/DL (12.0-16.0); Immature Granulocytes % 1.7 %; Immature Granulocytes Absolute 0.24 #; Lymphocytes # 0.3 10*3/uL (1.4-4.0); Mean Corpuscular HGB Conc 32.3 GM/DL (32-36); Mean Corpuscular Hemoglobin 26 PG (27-34); Mean Corpuscular Volume 81.4 FL (87-102); Mean Platelet Volume 10.1 FL (9.6-12.0); Monocytes # 0.4 10*3/uL (0.11-0.8); Neutrophils # 13.1 10*3/uL (1.4-7.4); Neutrophils % 93.2 % (38.7-73.9); Platelet Count 244 T/CUMM (130-400); Red Blood Count 3.54 MC/CUMM (3.8-5.5); Red Cell Distribution Width 19.3 % (9.3-17.3); White Blood Count 14.1 T/CUMM (4-12)
[2016-06-30] MEDS ORDERED: ONDANSETRON 4 MG/2 ML VIAL ONE (23:05)
[2016-06-30] MEDS ORDERED: PANTOPRAZOLE 40 MG VIAL IV ONE (23:05)
[2016-06-30 23:08] LABS: INR 1.2; PT Patient Result 12.7 SECS
[2016-06-30 23:21] LABS: Albumin 2.2 G/DL (3.4-5.0); Bilirubin,Total 0.4 MG/DL (0.2-1.0); Calcium 9.2 MG/DL (8.5-10.1); Osmolality,Calculated 273.1 MOS/KG (273-304); Potassium 5.7 MMOL/L (3.5-5.1); Total Protein 7.6 G/DL (6.4-8.3)
[2016-06-30] MEDS ORDERED: ONDANSETRON 4 MG/2 ML VIAL IV PRN (23:24)
[2016-06-30] MEDS ORDERED: HYDROmorphone 2 MG/1 ML VIAL IV PRN (23:24)
[2016-06-30 23:28] LABS: Lymphocytes 3 % (20-55); Platelet Estimate Normal; Segmented Neutrophils 95 % (50-85); Total Cells Counted 100
[2016-07-01] MEDS: ALBUTEROL/IPRATROPIUM 3 ML NEB RESP TX SCH ×4 (00:22→20:00)
[2016-07-01] MEDS: METOCLOPRAMIDE 10 MG/2 ML VIAL IV SCH ×2 (00:38→05:25)
[2016-07-01 05:04] LABS: Basophils % 0.2 % (0.0-0.8); Eosinophils % 0.2 % (0.00-10.9); Hematocrit 30.7 VOL% (35.7-47.0); Hemoglobin 9.4 GM/DL (12.0-16.0); Immature Granulocytes % 2.6 %; Immature Granulocytes Absolute 0.33 #; Lymphocytes # 0.3 10*3/uL (1.4-4.0); Lymphocytes % 2.5 % (21.3-54.2); Mean Corpuscular HGB Conc 30.6 GM/DL (32-36); Mean Corpuscular Hemoglobin 27 PG (27-34); Mean Platelet Volume 10.3 FL (9.6-12.0); Monocytes # 0.6 10*3/uL (0.11-0.8); Monocytes % 4.6 % (1.7-12.7); NRBC # 0.15 10*3/uL; Neutrophils # 11.3 10*3/uL (1.4-7.4); Neutrophils % 89.9 % (38.7-73.9); Platelet Count 212 T/CUMM (130-400); Red Blood Count 3.53 MC/CUMM (3.8-5.5); Red Cell Distribution Width 20.5 % (9.3-17.3); White Blood Count 12.6 T/CUMM (4-12)
[2016-07-01 05:27] LABS: Hypochromasia 1+; Lymphocytes 4 % (20-55); Ovalocytes Slight; Platelet Estimate Normal; Segmented Neutrophils 93 % (50-85); Total Cells Counted 100
[2016-07-01 05:38] LABS: Bilirubin,Total 0.4 MG/DL (0.2-1.0); Calcium 8.9 MG/DL (8.5-10.1); Osmolality,Calculated 271.2 MOS/KG (273-304); Total Protein 6.2 G/DL (6.4-8.3)
--- NOTE | 2016-07-01 09:05 | Oncology History&Physical ---
Assessment and Plan (1) Esophageal mass Status: Chronic Assessment and plan: Continue radiotherapy. I think the concern over bleeding is most likely directly related to anticoagulation. This is being stopped temporarily. We will monitor her hemoglobin and hematocrit. We will continue IV Protonix. I will reinstitute her tube feedings today and hold supplemental potassium. Continue with radiotherapy. Of course some bleeding could be tumor related itself. Current Visit: No History of Present Illness Chief complaint: Hematemesis History of present illness: Ms. Melendez is a 75 year old female With recently diagnosed esophageal cancer. She is currently undergoing radiotherapy along with weekly chemotherapy. She has a history notable for lower extremity thrombosis approximately 2 years ago and pulmonary embolism from approximately 2 months ago. She came in with reports of hematemesis and also possible blood per PEG tube. She has hyperkalemia on laboratory examination. She has been stable overnight receiving IV Protonix. She was on aspirin and Xarelto for the mentioned thrombotic events. These have been inhaled. She is not due for chemotherapy until . I think she is stable to continue radiotherapy and leave the floor temporarily. Home Medications Medication Instructions Recorded Confirmed Type Aspirin [Ecotrin] 81 mg PEG DAILY 05/21/16 07/01/16 History Calcium (Carb)/Vit D 600-400 1 tablet PEG DAILY 05/21/16 07/01/16 History [Caltrate 600 + D] Ergocalciferol (Vitamin D2) 50,000 unit PEG Q7D 05/21/16 07/01/16 History [Vitamin D2] HYDROcodone/ACETAMIN 5-325 [[place] 5 mg PEG BID PRN 05/21/16 07/01/16 History 5-325] Pantoprazole Tab [Protonix Tab] 40 mg PEG DAILY 05/21/16 07/01/16 History Potassium Chloride [Klor-Con] 40 meq PEG BID 05/21/16 07/01/16 History Rivaroxaban [Xarelto] 15 mg PEG BID 06/11/16 07/01/16 History Albuterol Inhaler [Proventil 2 puff INH Q6H PRN #1 inhaler 06/29/16 07/01/16 Rx Inhaler] Cefdinir Liquid [Omnicef Liquid] 500 mg PO BID #400 ml 06/29/16 07/01/16 Rx prednisoLONE [Prelone Syrup] 15 mg PO DAILY #75 ml 06/29/16 07/01/16 Rx Allergies Allergy/AdvReac Type Severity Reaction Status Date / Time No Known Allergies Allergy Verified 06/30/16 21:06 Medical,Surgical,& Family Hx - Medical History Cardio: History of: Hypertension Neurology: No history of: Seizures Respiratory: History of: Respiratory Problems (blood clot in lung 04/2016) Gastrointestinal: History of: Gastrointestinal Cancer (esophgeal CA), GI Problems (PEG tube) Other: History of: Cancer (esophagus) - Surgical History Abdominal Surgeries: Surgical HX of: Abdominal Surgery, EGD (esophageal ca) Reproductive Surgeries: Surgical HX of;: Breast Surgery (Biopsy), Hysterectomy - Family History Family History: Reports;: Family Hypertension Denies;: Family Cancer - Social History Smoking Status: Never smoker Frequency of Alcohol Use: None Type of Drug Use: None - Constitutional Constitutional: Present: fatigue, malaise. Absent: chills, fever(s), increased appetite - EENT Ears: Absent: ear discharge, ear pain Nose, mouth and throat: Present: dysphagia. Absent: epistaxis, neck mass, neck pain - Cardiovascular Cardiovascular ROS IM: Absent: chest pain - Respiratory Respiratory: Absent: cough - Gastrointestinal Gastrointestinal: Absent: constipation, melena (She reports brown stools) - Genitourinary Genitourinary ROS female: Absent: difficulty urinating, dysuria - Psychiatric Psychiatric General: Absent: anxiety, confusion Exam - Constitutional Vitals: Period Temp Pulse Resp BP Sys/Nava Pulse Ox Last 24 Hr 97.3 F-98.7 F 66-78 18-22 114-125/80-84 97-98 General appearance: over weight - Head Head Exam: Present: normocephalic - Eye Eye Exam: Present: EOMI. Absent: conjunctival injection, periorbital swelling, scleral icterus Pupils: Present: PERRL - ENT ENT exam: Present: normal external ear exam - Respiratory Respiratory exam: Present: CTAB. Absent: accessory muscle use, chest wall tenderness - Cardiovascular Cardiovascular exam: Present: RRR - GI/Abdominal GI/Abdominal exam: Present: soft (Possible stigmata of prior hemorrhage noted within PEG tube; no active process appreciated), other (Mucopurulent discharge from around PEG site). Absent: ascites, distended, guarding, tenderness - Neurological Exam Neurological exam: Present: alert, oriented X3 - Skin Skin exam: Present: warm, dry Results - Labs CBC & BMP: 07/01/16 04:04 07/01/16 04:04
[2016-07-01] MEDS: SODIUM CHLORIDE 0.45% 1,000 ML IV SCH (10:59)
[2016-07-01] MEDS: PANTOPRAZOLE 40 MG VIAL IV SCH ×2 (11:01→22:02)
[2016-07-01] MEDS: CEFDINIR PO SCH ×2 (15:56→22:02)
[2016-07-02] MEDS: ALBUTEROL/IPRATROPIUM 3 ML NEB RESP TX SCH ×5 (00:11→23:47)
[2016-07-02 05:52] LABS: Basophils % 0.3 % (0.0-0.8); Eosinophils % 0.5 % (0.00-10.9); Immature Granulocytes Absolute 0.04 #; Lymphocytes # 0.3 10*3/uL (1.4-4.0); Lymphocytes % 7.6 % (21.3-54.2); Mean Corpuscular Hemoglobin 26 PG (27-34); Mean Corpuscular Volume 81.2 FL (87-102); Mean Platelet Volume 9.6 FL (9.6-12.0); Monocytes # 0.3 10*3/uL (0.11-0.8); Monocytes % 7.6 % (1.7-12.7); Neutrophils # 3.3 10*3/uL (1.4-7.4); Platelet Count 223 T/CUMM (130-400); Red Blood Count 3.08 MC/CUMM (3.8-5.5); Red Cell Distribution Width 19.7 % (9.3-17.3); White Blood Count 3.9 T/CUMM (4-12)
[2016-07-02 06:18] LABS: Band Neutrophils 2 % (0-10); Lymphocytes 3 % (20-55); Segmented Neutrophils 88 % (50-85); Total Cells Counted 100
[2016-07-02 06:19] LABS: Hypochromasia 1+; Microcytosis 1+; Ovalocytes Slight; Platelet Estimate Adequate
[2016-07-02 06:20] LABS: Albumin 1.8 G/DL (3.4-5.0); Bilirubin,Total 0.6 MG/DL (0.2-1.0); Calcium 8.2 MG/DL (8.5-10.1); Magnesium 1.6 MG/DL (1.8-2.4); Potassium 4.4 MMOL/L (3.5-5.1); Total Protein 5.6 G/DL (6.4-8.3)
[2016-07-02] MEDS: SODIUM CHLORIDE 0.45% 1,000 ML IV SCH (07:19)
[2016-07-02] MEDS ORDERED: HYDROcod/ACETAMIN 7.5-325 MG/15 ML UDCUP PO PRN (08:46)
[2016-07-02] MEDS ORDERED: SODIUM CHLORIDE 0.9% 250 ML IV PRN (08:46)
[2016-07-02] MEDS ORDERED: MAGNESIUM SULF RIDER 2 GM in PREMIX 1 EACH IV ONE (08:46)
--- NOTE | 2016-07-02 08:49 | Oncology Progress Note ---
Assessment and Plan (1) Esophageal mass Status: Chronic Assessment and plan: Continue radiotherapy. I think the concern over bleeding is most likely directly related to anticoagulation. This is being stopped temporarily. We will monitor her hemoglobin and hematocrit. We will continue IV Protonix. I will reinstitute her tube feedings today and hold supplemental potassium. Continue with radiotherapy. Of course some bleeding could be tumor related itself. Current Visit: No Oncology Subjective PN Interval history: Hospital day 3 for patient admitted with anemia and concern for upper GI bleeding. Anticoagulation has been discontinued. She reports no bowel movement in the last 24 hours and no evidence of hematemesis or further blood per PEG tube. She was started on IV fluids yesterday and today's hematocrit does represent some degree of delusional drop. She remains on IV Protonix twice daily. We are continuing radiotherapy and chemotherapy is to be considered for tomorrow. She is seated at the bedside and is having some regurgitation. She appears uncomfortable. She reports some neck pain for which [place] elixir will be prescribed. I will also transfuse 2 units of red blood cells and continue to follow hematocrits over the next 24-48 hours Exam - Constitutional Vitals: Period Temp Pulse Resp BP Sys/Nava Pulse Ox Last 24 Hr 96.6 F-99.5 F 82-103 16-24 102-121/62-77 91-99 Results - Labs CBC & BMP: 07/02/16 04:37 07/02/16 04:37
--- NOTE | 2016-07-02 09:10 | Physician Query Form ---
CLICK EDIT DOCUMENT TO SELECT QUERY ANSWER --> OK --> SIGN Leigha Dowell RN Clinical [employer] W) [phone] (f) [phone] [email or web address] PROVIDERS: Make your selection(s) from the choices in EACH section by typing an "x" and enter comments in the comment section. Please use your independent medical judgment in providing your response. This request does not imply that any particular answer is desired or expected. CLINICAL INDICATORS: (Providers should not edit this section) Based on documentation of "anemia", H/H of 8/.25. 2 units of PRBC's ordered. Based on the above, could you clarify which of the following conditions you are evaluating, treating, and/or monitoring? ( x) Blood loss anemia ( x) acute ( ) chronic ( ) acute on chronic ( ) Acute blood loss anemia on baseline chronic anemia ( ) Acute blood loss anemia as a complication of a procedure ( ) Iron deficiency anemia not associated with blood loss ( ) Dilutional anemia due to IV fluids ( ) Anemia due to chemotherapy ( ) Anemia due to neoplastic disease ( ) Anemia due to chronic kidney disease ( ) Pernicious anemia ( ) Aplastic anemia ( ) Hemolytic anemia ( ) immune ( ) non-immune - please specify cause: ( ) Anemia due to other condition, please specify: ( ) Clinically unable to determine COMMENTS: Use of terms such as suspected, likely, or probable (associated with a specific diagnosis that is being evaluated, monitored, or treated as if it exists) are acceptable and can be restated in the discharge summary if not ruled out. MTDD
[2016-07-02] MEDS: PANTOPRAZOLE 40 MG VIAL IV SCH ×2 (12:10→21:03)
[2016-07-02] MEDS: CEFDINIR PO SCH ×2 (12:10→21:03)
[2016-07-03] MEDS: ALBUTEROL/IPRATROPIUM 3 ML NEB RESP TX SCH ×3 (07:21→19:11)
[2016-07-03 08:01] LABS: Basophils % 0.3 % (0.0-0.8); Eosinophils # 0.1 10*3/uL (0.0-0.87); Eosinophils % 1.3 % (0.00-10.9); Hematocrit 29.2 VOL% (35.7-47.0); Immature Granulocytes % 0.8 %; Immature Granulocytes Absolute 0.03 #; Lymphocytes # 0.4 10*3/uL (1.4-4.0); Lymphocytes % 10.6 % (21.3-54.2); Mean Corpuscular HGB Conc 33.6 GM/DL (32-36); Mean Corpuscular Hemoglobin 27 PG (27-34); Mean Corpuscular Volume 80.4 FL (87-102); Mean Platelet Volume 9.3 FL (9.6-12.0); Monocytes # 0.3 10*3/uL (0.11-0.8); Monocytes % 7.4 % (1.7-12.7); Neutrophils % 79.6 % (38.7-73.9); Platelet Count 203 T/CUMM (130-400); Red Blood Count 3.63 MC/CUMM (3.8-5.5); Red Cell Distribution Width 18.7 % (9.3-17.3); White Blood Count 3.8 T/CUMM (4-12)
[2016-07-03 08:10] LABS: Hemoglobin 9.8 GM/DL (12.0-16.0)
[2016-07-03 08:21] LABS: Lymphocytes 13 % (20-55); Segmented Neutrophils 81 % (50-85); Total Cells Counted 100
[2016-07-03 08:26] LABS: Calcium 8.4 MG/DL (8.5-10.1); Magnesium 1.8 MG/DL (1.8-2.4); Osmolality,Calculated 270.8 MOS/KG (273-304); Potassium 3.9 MMOL/L (3.5-5.1)
[2016-07-03 08:43] LABS: Phosphorous 4.3 MG/DL (2.5-4.9); Prealbumin 9.2 MG/DL (20-40)
[2016-07-03 08:48] LABS: Hypochromasia 1+; Microcytosis 1+; Ovalocytes Slight; Platelet Estimate Adequate
[2016-07-03] MEDS: CEFDINIR PO SCH ×2 (09:27→20:57)
[2016-07-03] MEDS: PANTOPRAZOLE 40 MG VIAL IV SCH ×2 (09:27→20:57)
[2016-07-03] MEDS ORDERED: CARBOplatin 200 MG in SODIUM CHLORIDE 0.9% 250 ML IV ONE (14:01)
--- NOTE | 2016-07-03 14:03 | Oncology Progress Note ---
Assessment and Plan (1) Esophageal mass Status: Chronic Assessment and plan: Continue radiotherapy. I think the concern over bleeding is most likely directly related to anticoagulation. This is being stopped temporarily. We will monitor her hemoglobin and hematocrit. We will continue IV Protonix. I will reinstitute her tube feedings today and hold supplemental potassium. Continue with radiotherapy. Of course some bleeding could be tumor related itself. Current Visit: No Oncology Subjective PN Interval history: Ms. Melendez is awake and alert this afternoon. She is up in the chair related to radiation. She seems to be stronger today after blood transfusion yesterday. No additional evidence of hemorrhage is noted. Hematocrit is 29. We will give her weekly dose of carboplatin 200 mg today and we anticipate discharge tomorrow without anticoagulation as long as blood counts remain stable overnight Exam - Constitutional Vitals: Period Temp Pulse Resp BP Sys/Nava Pulse Ox Last 24 Hr 97.1 F-99.9 F 82-109 16-20 105-163/56-85 94-99 Results - Labs CBC & BMP: 07/03/16 07:29 07/03/16 07:29
[2016-07-03] MEDS: SODIUM CHLORIDE 0.45% 1,000 ML IV SCH (17:29)
[2016-07-04] MEDS: ALBUTEROL/IPRATROPIUM 3 ML NEB RESP TX SCH ×2 (00:20→07:01)
[2016-07-04 05:22] LABS: Calcium 8.5 MG/DL (8.5-10.1); Magnesium 1.7 MG/DL (1.8-2.4); Osmolality,Calculated 271.8 MOS/KG (273-304)
[2016-07-04 05:23] LABS: Basophils % 0.3 % (0.0-0.8); Eosinophils # 0.1 10*3/uL (0.0-0.87); Eosinophils % 1.5 % (0.00-10.9); Hematocrit 29.6 VOL% (35.7-47.0); Hemoglobin 9.9 GM/DL (12.0-16.0); Immature Granulocytes % 0.8 %; Immature Granulocytes Absolute 0.03 #; Lymphocytes # 0.4 10*3/uL (1.4-4.0); Lymphocytes % 10.6 % (21.3-54.2); Mean Corpuscular HGB Conc 33.4 GM/DL (32-36); Mean Corpuscular Hemoglobin 27 PG (27-34); Mean Corpuscular Volume 80.9 FL (87-102); Mean Platelet Volume 9.3 FL (9.6-12.0); Monocytes # 0.3 10*3/uL (0.11-0.8); Monocytes % 8.6 % (1.7-12.7); Neutrophils # 3.1 10*3/uL (1.4-7.4); Neutrophils % 78.2 % (38.7-73.9); Platelet Count 203 T/CUMM (130-400); Red Blood Count 3.66 MC/CUMM (3.8-5.5); Red Cell Distribution Width 18.7 % (9.3-17.3)
[2016-07-04 06:12] LABS: Burr Cells Slight; Elliptocytes Few; Eosinophils 2 % (0-10); Hypochromasia 1+; Lymphocytes 9 % (20-55); Platelet Estimate Normal; Segmented Neutrophils 82 % (50-85); Total Cells Counted 100
[2016-07-04 06:13] LABS: Microcytosis 1+
[2016-07-04 08:09] VITALS: BP 136/95
--- NOTE | 2016-07-04 09:46 | Discharge Summary ---
Hospital Course - Hospital Course Hospital Course: Patient with advanced esophageal cancer currently receiving chemotherapy and radiation who was admitted with symptomatic anemia acute blood loss subtype and weakness. The patient was anticoagulated with both aspirin and Xarelto for recent history of pulmonary embolus. 4+ occult blood positive was confirmed as well as a strong suspicion initially of hematemesis and coffee-ground aspirate per PEG tube. The patient received IV Protonix and discontinuation of all anticoagulation and has remained stable during this hospitalization. She is now tolerating liquid diet via PEG tube. We have continued radiotherapy and she also received carboplatin 200 mg IV yesterday. She is believed to be in her third week of radiotherapy. She is unable to swallow solids or liquids per mouth. Family is present with her today and I have discussed verbally the discontinuation of anticoagulation as well as documented this in the electronic health record. She will resume radiotherapy from home on Thursday and I will plan to see her the following 6 days from today. We may entertain restarting aspirin if her hematocrit remains stable Diagnosis - Discharge Diagnosis (1) Esophageal mass Status: Chronic Discharge Plan - Discharge Medications New HYDROcod/ACETAM 7.5-325MG/15ML 15 ml PO Q4H PRN #480 PRN Reason: Pain Moderate (4-7) Continue Calcium (Carb)/Vit D 600-400 [Caltrate 600 + D] 1 tablet PEG DAILY Albuterol Inhaler [Proventil Inhaler] 2 puff INH Q6H PRN #1 inhaler PRN Reason: Shortness Of Breath/Wheezing Cefdinir Liquid [Omnicef Liquid] 500 mg PO BID #400 ml Potassium Chloride [Klor-Con] 40 meq PEG BID Pantoprazole Tab [Protonix Tab] 40 mg PEG DAILY Ergocalciferol (Vitamin D2) [Vitamin D2] 50,000 unit PEG Q7D Discontinued HYDROcodone/ACETAMIN 5-325 [[place] 5-325] 5 mg PEG BID PRN PRN Reason: Pain Aspirin [Ecotrin] 81 mg PEG DAILY Rivaroxaban [Xarelto] 15 mg PEG BID prednisoLONE [Prelone Syrup] 15 mg PO DAILY #75 ml - Follow Up or Referral - Forms/Instructions Exam - Constitutional Vitals: Period Temp Pulse Resp BP Sys/Nava Pulse Ox Last 24 Hr 97.2 F-98.6 F 89-109 16-20 111-136/66-95 96-100 Discharge Results Procedures and tests throughout hospitalization: Pending Orders 07/05/16 04:00 BMP w/ Mg [Basic Metabolic Panel w/Mg] IN AM Comp Blood Count Auto Diff IN AM 07/07/16 04:00 Basic Metabolic Panel MOTH Magnesium MOTH Phosphorous MOTH Prealbumin MOTH Labs on day of discharge: Labs from last 24 hours 07/04/16 07/04/16 04:00 04:00 WBC 4.0 RBC 3.66 L Hgb 9.9 L Hct 29.6 L MCV 80.9 L MCH 27 MCHC 33.4 RDW 18.7 H Plt Count 203 MPV 9.3 L Neut % (Auto) 78.2 H Lymph % (Auto) 10.6 L [place] % (Auto) 8.6 Eos % (Auto) 1.5 Baso % (Auto) 0.3 Neut # (Auto) 3.1 Lymph # (Auto) 0.4 L [place] # (Auto) 0.3 Eos # (Auto) 0.1 Baso # (Auto) 0.0 Total Counted 100 Immature Gran % 0.8 Nucleated RBC % 0.0 Immature Gran # 0.03 Segmented Neutrophils 82 Lymphocytes 9 L Monocytes 7 Eosinophils 2 Nucleated RBCs # 0.00 Platelet Estimate Normal Hypochromasia 1+ Microcytosis 1+ [place] Cells Slight Elliptocytes Few Morphology Comment Sodium 137 Potassium 4.0 Chloride 103 Carbon Dioxide 26 Anion Gap 12.0 BUN 12 Creatinine 0.40 L GFR Calculation 124 BUN/Creatinine Ratio 30.00 H Glucose 87 Calculated Osmolality 271.8 L Calcium 8.5 Magnesium 1.7 L DS: Provider Date of admission: 06/30/16 23:22 Primary care physician: . No PCP Attending physician on admission: Sushil Hollins MD Discharging clinician: Sushil Hollins MD
[2016-07-04] MEDS: CEFDINIR PO SCH (09:49)
[2016-07-04] MEDS: PANTOPRAZOLE 40 MG VIAL IV SCH (09:49)
== END 2016-07-04 11:20 | disposition home health service (06) | DRG 813 ==
LOC: N.ED 20:41 → N.EDINP 23:22 → N.4E 23:46
PROVIDERS: ADMIT Specialist; ATTEND Specialist

== ENCOUNTER 2016-07-29 09:15 | Inpatient (IN) ==
[2016-07-29] MEDS ORDERED: ONDANSETRON ODT 4 MG TABLET PO STA (09:55)
[2016-07-29] MEDS ORDERED: SODIUM CHLORIDE 0.9% 1,000 ML IV STA (09:55)
--- NOTE | 2016-07-29 09:58 | EKG Report ---
Stationary ECG Study [facility] ER Test Date: 07/29/2016 9:35:29 AM Pat Name: LAURA LONGORIA Department: Room: Gender: F [employer] Trucker: : 1940 Requested by: Ras Owen Order Number: [id number] Reading MD: CHARLES VAUGHN Intervals [place] Rate: 128 P: 28 CA: 154 QRS: -61 QRSD: 86 T: 15 QT: 394 QTc: 470 Interpretive Statements SINUS TACHYCARDIA WITH FREQUENT ECTOPIC PREMATURE COMPLEXES LEFT ANTERIOR FASCICULAR BLOCK CANNOT RULE OUT ANTERIOR INFARCT, OLD Electronically Signed On 07-29-16 15:38:56 CDT by CHARLES VAUGHN [email or web address]
--- NOTE | 2016-07-29 10:05 | Emergency Department Note ---
Emani Amin Hilary, am scribing for, and in the presence of, Ras Gavin MD 10: 01. Leslye Amin James D, MD, personally performed the services described in this documentation, ascribed by Geneva Joaquin in my presence, and it is both accurate and complete . Arrival - Arrival Chief Complaint: Shortness of Breath Stated Complaint: hard of breathing ED Nursing Triage Note: Pt c/o SOB worse with exertion for over a wk with fever and chills. Pt was seen by Dr Martinez on Thursday in clinic. Mode of Arrival: Wheelchair Limitations: No Limitations Source: Patient, Family (daughter), RN Notes Reviewed - History of Present Illness HPI Narrative: Pt is a 75 y/o presenting to the ED with c/o SOB which onset a few weeks ago. Pt confirms cough, subjective low grade fever and sharp chest pain but denies dysuria or back pain. Pt has CA of the esophagus and sees Dr Sharp and Dr. Hollins, she gets radiation everyday, but did not go today and she gets chemo tomorrow per her daughter. Pt was seen at the Dr 4 days ago and was given ABX for "something in her lungs". No other complaints ro problems stated in the ED. Onset (ago): week(s) Allergies/Adverse Reactions: Allergies Allergy/AdvReac Type Severity Reaction Status Date / Time No Known Allergies Allergy Verified 06/30/16 21:06 Home Medications: Home Medications Medication Instructions Recorded Confirmed Type Calcium (Carb)/Vit D 600-400 1 tablet PEG DAILY 05/21/16 07/29/16 History [Caltrate 600 + D] Ergocalciferol (Vitamin D2) 50,000 unit PEG SA 05/21/16 07/29/16 History [Vitamin D2] Pantoprazole Tab [Protonix Tab] 40 mg PEG DAILY 05/21/16 07/29/16 History Potassium Chloride [Klor-Con] 40 meq PEG BID 05/21/16 07/29/16 History Aa/Prot/Arginine/C/Zinc/Copper 30 ml PO TID 07/29/16 07/29/16 History [Proteinex Wc Liquid] Albuterol Sulfate [Albuterol Neb] 2.5 mg RESP TX Q4HR PRN 07/29/16 07/29/16 History Albuterol Sulfate [Ventolin HFA] 2 puff INH Q6H PRN 07/29/16 07/29/16 History Amoxicillin/Potassium Clav [Amox 1.5 ml PO BID 07/29/16 07/29/16 History Tr-K Clv 600-42.9/5 Susp] Magnesium Gluconate Liquid 5 ml PO BID 07/29/16 07/29/16 History [Magonate] Review of System - Review of System 12 point system: reviewed and no additional remarkable complaints except as stated - Review of System Constitutional: Present: fever (subjective) Respiratory: Present: cough, respiratory distress (SOB) Cardiovascular: Present: chest pain Genitourinary female: Absent: dysuria Musculoskeletal: Absent: back pain Medical,Surgical,& Family Hx - Medical History Cardio: History of: Hypertension Neurology: No history of: Seizures Respiratory: History of: Respiratory Problems (blood clot in lung 04/2016) Gastrointestinal: History of: Gastrointestinal Cancer (esophgeal CA), GI Problems (PEG tube) Other: History of: Cancer (esophagus) - Surgical History Abdominal Surgeries: Surgical HX of: Abdominal Surgery, EGD (esophageal ca) Reproductive Surgeries: Surgical HX of;: Breast Surgery (Biopsy), Hysterectomy - Family History Family History: Reports;: Family Hypertension Denies;: Family Cancer - Social History Smoking Status: Never smoker Exam Physical Examination: GENERAL: This is a well-nourished, well-developed female in no apparent distress. VITAL SIGNS: Temperature: 98.4 Pulse: 129 Respiratory: 20 Blood Pressure: 145/97 O2SAT: 98 HEENT: Head is normocephalic and atraumatic. Pupils are equally round and reactive to light. Extraocular movement are intact. Oropharynx is benign with dry mucous membranes. NECK: Neck is soft and supple without tenderness. There are no masses. There is no lymphadenopathy. LUNGS: Lungs are clear to auscultation bilaterally. Chest rises symmetrically. There is no chest wall tenderness. CV: Heart is tachycardic rate and rhythm without murmurs, rubs, or gallops. ABDOMEN:Abdomen is soft, non-tender to palpation. PEG tube is present in the epigastrium. There are no abnormal masses palpated. There is no organomegaly. Bowel sounds are present and active. SKIN: Skin is warm and dry. No rash. EXTREMITIES: Patient has full range of motion without tenderness. There is no pedal edema. NEUROLOGIC: Awake, alert, and oriented x4. Cranial nerves II through XII are grossly intact. There are no motorsensory deficits. PSYCHIATRIC: Normal affect. Normal mood. Vital Signs: Vital Signs Temperature 98.4 F 07/29/16 10:15 Pulse Rate 110 H 07/29/16 14:35 Respiratory Rate 18 07/29/16 14:35 Blood Pressure 120/87 07/29/16 14:35 O2 Sat by Pulse Oximetry 100 07/29/16 14:35 Course Course Narrative: Given the patient's pulmonary embolus on CT and DVT present in the right lower extremity. The patient was sent to IR for inferior vena cava filter placement. - Consultations Consultation #1: Discussed with Dr. Johnson regarding possible EKOS therapy. He will talk to Dr. Hollins the patient's primary care provider. We will obtain stat echocardiogram in the intervening time. Time: 13:00 Consultation #2: Discussed with Dr. Hollins. Patient will be admitted to his service. Initial orders written for him. He will assume care upon patient's arrival to the [facility]. Patient will be admitted to 4 E. Time: 14:51 Consultation #3: Discussed with interventional radiology Dr. Carcamo. Patient will be taken to IR for inferior vena cava filter placement. Time: 13:30 Results - Labs CBC & BMP: 07/29/16 10:20 07/29/16 10:20 Lab Results: I have reviewed the patients labs Labs: Laboratory Tests 07/29/16 07/29/16 07/29/16 10:20 10:20 10:20 Lactic Acid 2.0 Troponin I 0.032 B-Natriuretic Peptide 1420 H - EKG EKG results: interpreted by ERMD - Diagnostic Findings Procedure: Chest x-ray: image reviewed by me (Hilar adenopathy is present, no infiltrates, small right and left pleural effusions.), CT - chest: image reviewed by me (Bilateral pulmonary emboli), Ultrasound: report reviewed by me ( Lower extremity venous Doppler: DVT right popliteal vein) Disposition Clinical Impression: Esophageal cancer, Cough, Fever, Bilateral pulmonary embolism, Deep vein thrombosis (DVT) of popliteal vein of right lower extremity Case discussed with: patient Disposition: Still a Patient Condition: Stable Time of Disposition: 14:52
[2016-07-29 10:34] LABS: Hematocrit 34.9 VOL% (35.7-47.0); Hemoglobin 11.5 GM/DL (12.0-16.0); Immature Granulocytes Absolute 0.05 #; Lymphocytes # 0.2 10*3/uL (1.4-4.0); Lymphocytes % 3.7 % (21.3-54.2); Mean Corpuscular Hemoglobin 28 PG (27-34); Mean Corpuscular Volume 83.7 FL (87-102); Monocytes # 1.1 10*3/uL (0.11-0.8); Monocytes % 21.9 % (1.7-12.7); Neutrophils # 3.6 10*3/uL (1.4-7.4); Neutrophils % 73.4 % (38.7-73.9); Platelet Count 285 T/CUMM (130-400); Red Blood Count 4.17 MC/CUMM (3.8-5.5); Red Cell Distribution Width 21.1 % (9.3-17.3); White Blood Count 4.9 T/CUMM (4-12)
[2016-07-29 10:43] LABS: INR 1.2; PT Patient Result 12.3 SECS; Partial Thromboplastin Time 30.4 SECS (0-40)
--- NOTE | 2016-07-29 10:43 | XRay Report ---
History: Shortness of breath. History of esophageal cancer Date: 07/29/2016 Study: Chest x-ray PA and lateral Comparison exam: Chest x-ray June 29, 2016 The cardiac silhouette is upper normal in size. There is mild right hilar fullness suggesting potential hilar lymphadenopathy. The pulmonary vasculature is not engorged. There is mild bilateral pleural effusion. There is mild strandy atelectatic change in the right lower lung. There is some equivocal nodular infiltrate in the right perihilar area. There is osteopenia and thoracic spondylosis. Degenerative changes of the shoulders are present. Impression: Right hilar fullness which could represent right hilar lymphadenopathy in this patient with a history of esophageal carcinoma. Nonspecific mild right perihilar infiltrate which could represent early pneumonia. Mild bilateral pleural effusion. CT of the chest is scheduled for later today; please refer to that report PROCEDURE INTERPRETED AT [facility] DEPARTMENT OF RADIOLOGY Final Report Signed by: Dr. Denisha Ngo
[2016-07-29 10:59] LABS: Band Neutrophils 1 % (0-10); Lymphocytes 1 % (20-55); Segmented Neutrophils 86 % (50-85); Total Cells Counted 100
[2016-07-29 11:00] LABS: Hypochromasia 1+; Microcytosis 1+; Platelet Estimate Normal
[2016-07-29 11:06] LABS: Albumin 2.2 G/DL (3.4-5.0); Bilirubin,Total 0.4 MG/DL (0.2-1.0); Calcium 8.5 MG/DL (8.5-10.1); Osmolality,Calculated 265.5 MOS/KG (273-304); Potassium 4.5 MMOL/L (3.5-5.1); Total Protein 7.3 G/DL (6.4-8.3); Troponin I Only 0.032 NG/ML (0.00-0.045)
[2016-07-29] MEDS ORDERED: ONDANSETRON ODT 4 MG TABLET PO ONE (11:14)
[2016-07-29] MEDS ORDERED: ENOXAPARIN 80 MG/0.8 ML SYRINGE SUBCUT STA (11:37)
--- NOTE | 2016-07-29 11:52 | CT Report ---
History: Dyspnea. Chest pain. Esophageal carcinoma Date: 07/29/2016 Study: CT chest with IV contrast with pulmonary embolus technique Comparison exam: Treatment planning CT June 27, 2016, PE chest CT May 22, [address] sections were obtained through the lungs following the IV administration of 80 mL of Omnipaque 350 without immediate complication. Multiplanar reconstruction images were also evaluated. The CT exam was performed using one or more of the following dose reduction techniques: Automated exposure control, adjustment of the mA and/or kV according to patient size, or use of iterative reconstruction technique. There is a large amount of intra-arterial cylindrical filling defect compatible with acute PE bilaterally, with thrombus/embolus in the distal aspect of the main right pulmonary artery, extending into the right upper lobe pulmonary artery and descending right pulmonary artery branches. There is extension of thrombus into multiple segmental branches of the right lower lobe and right upper lobe. There is also filling defect in the descending left pulmonary artery with extension of thrombus into multiple left lower lobe segmental branches. There is clot in the apicoposterior and lingular left upper lobe branches. The right ventricle to left ventricle ratio measures 2.2. There is some right paratracheal lymphadenopathy with lymph node measuring 14 mm short axis diameter. There are numerous noncalcified pulmonary nodules throughout both lungs compatible with metastatic disease which has worsened since June 09, 2016. This includes a 13 mm pleural-based pulmonary nodule in the posterior lateral left lung apex which previously measured 7 mm. There is mild strandy atelectatic change in either lower lobe. There is nonspecific mild patchy and hazy upper lobe infiltrate bilaterally which could represent some mild low-grade pneumonia. Critical test result Impression: Acute pulmonary embolic disease bilaterally as discussed with Dr. Gavin by telephone at 11:35 AM. The right to left ventricular ratio measures 2.2 Worsening pulmonary metastatic disease compared to June 09, 2016 in this patient with known history of esophageal carcinoma Small amount of nonspecific patchy infiltrate in either upper lobe which could represent some low-grade pneumonitis PROCEDURE INTERPRETED AT [facility] DEPARTMENT OF RADIOLOGY Final Report Signed by: Dr. Denisha Ngo
--- NOTE | 2016-07-29 12:01 | Cardiology Consult Note ---
Assessment and Plan - Time spent with patient Time spent with patient: Greater than 30 minutes (Examination documentation discussion with consultants and orders) (1) Bilateral pulmonary embolism Status: Acute Assessment and plan: This is recurrent Current Visit: Yes (2) Esophageal cancer Status: Chronic Assessment and plan: Locally invasive currently on palliative chemo and radiation Current Visit: Yes (3) Anemia Status: Chronic Assessment and plan: Currently not anemic but recent acute anemia from GI bleeding in June of this year Current Visit: No History of Present Illness - Data of Consult Patient: new to practice Consult date: 07/29/16 Requesting Physician: Ras Gavin Primary care physician: Bertram Akers - Consult Narrative Reason for consult: Bilateral pulmonary emboli, tachycardia and right ventricular enlargement History of present illness: Ms. Melendez is a 75 year old female with history of DVT in the remote past and then in March of this year she had a pulmonary embolism. She was treated with Xarelto and aspirin and then had a significant upper GI bleed necessitating cessation of anticoagulation therapy in June of this year. She had a hemoglobin down to a coffee-ground type aspirate from her PEG tube and significant melena. She is currently undergoing chemotherapy and radiation for esophageal cancer that is locally invasive. The patient's daughter gives a history that she has been progressively more short of breath about 3 weeks and then got progressively are rapidly worse at the end of last week she saw her primary care physician was given antibiotics. She has been given a history of asthma in the past the daughter also points out that her chest x-ray was abnormal at that time. She was scheduled to follow-up with Dr. Akers. The patient continued to get progressively worse today and came to the emergency room where she had a CT PE protocol that showed bilateral pulmonary emboli and right ventricular enlargement. She had sinus tachycardia with S wave in 1 T- wave inversion in lead III with only a small R-wave in lead III. I came to the emergency department saw the patient discussed with Dr. Gavin in person and also call and discussed with Dr. Hollins on the phone. I saw and interviewed the patient room 4 of the ER. At this time her lower extremity venous Dopplers are pending her echo is pending. I have reviewed the chart and saw significant hemoglobin drop with her Xarelto and aspirin back in June. She has rather advanced esophageal cancer and I think given the recurrent nature of her pulmonary emboli and advanced esophageal cancer with recent significant bleeding she does not appear to be a very good candidate for EKOS and thrombolysis. Although the dose is lower and more local it does have a significant risk of systemic effects. I discussed with the patient and her daughter these recommendations this also is concave by the fact it sounds like it has been going on for over a week. She has right ventricular enlargement and tachycardia but is hemodynamically stable. 2 L nasal cannula her sats are approximately 90-92. I recommend that we follow up on her venous Dopplers and if she has evidence of lower extremity thrombus should consider IVC filter placement. This however is not ideal in someone who cannot take anticoagulation. This appears to be that the patient has underlying hypercoagulable state that is worsened by her current cancer diagnosis. I discussed with the patient about her CODE STATUS in the presence of her daughter and recommended that she make some decisions and make him clear to her family. CC: - Home Medications and Allergies Home Medications: Home Medications Medication Instructions Recorded Confirmed Type Calcium (Carb)/Vit D 600-400 1 tablet PEG DAILY 05/21/16 07/29/16 History [Caltrate 600 + D] Ergocalciferol (Vitamin D2) 50,000 unit PEG SA 05/21/16 07/29/16 History [Vitamin D2] Pantoprazole Tab [Protonix Tab] 40 mg PEG DAILY 05/21/16 07/29/16 History Potassium Chloride [Klor-Con] 40 meq PEG BID 05/21/16 07/29/16 History Aa/Prot/Arginine/C/Zinc/Copper 30 ml PO TID 07/29/16 07/29/16 History [Proteinex Wc Liquid] Albuterol Sulfate [Albuterol Neb] 2.5 mg RESP TX Q4HR PRN 07/29/16 07/29/16 History Albuterol Sulfate [Ventolin HFA] 2 puff INH Q6H PRN 07/29/16 07/29/16 History Amoxicillin/Potassium Clav [Amox 1.5 ml PO BID 07/29/16 07/29/16 History Tr-K Clv 600-42.9/5 Susp] Magnesium Gluconate Liquid 5 ml PO BID 07/29/16 07/29/16 History [Magonate] Allergies/Adverse Reactions: Allergies Allergy/AdvReac Type Severity Reaction Status Date / Time No Known Allergies Allergy Verified 06/30/16 21:06 - Constitutional Constitutional: Present: anorexia, fatigue, weight loss - EENT Nose, mouth and throat: Present: dysphagia - Cardiovascular Cardiovascular: Present: dyspnea, dyspnea on exertion. Absent: chest pain at rest, chest pain with activity - Respiratory Respiratory: Present: cough, dyspnea, dyspnea on exertion - Gastrointestinal Gastrointestinal: Present: abdominal pain - Musculoskeletal Musculoskeletal: Absent: arthralgias, joint swelling - Neurological Neurological: Absent: abnormal gait, memory loss - Psychiatric Psychiatric: Present: depression. Absent: auditory hallucinations, confusion - Endocrine Endocrine: Absent: cold intolerance, heat intolerance - Hematologic/Lymphatic Hematologic/Lymphatic: Present: easy bleeding. Absent: easy bruising Medical,Surgical,& Family Hx - Medical History Cardio: History of: Hypertension Neurology: No history of: Seizures Respiratory: History of: Respiratory Problems (blood clot in lung 04/2016 and "asthma") Gastrointestinal: History of: Gastrointestinal Bleed (June 2016 while on Xarelto and aspirin), Gastrointestinal Cancer (esophgeal CA), GI Problems (PEG tube) Other: History of: Cancer (esophagus) - Surgical History Abdominal Surgeries: Surgical HX of: Abdominal Surgery, EGD (esophageal ca) Reproductive Surgeries: Surgical HX of;: Breast Surgery (Biopsy), Hysterectomy - Family History Family History: Reports;: Family Hypertension Denies;: Family Cancer - Social History Smoking Status: Never smoker Frequency of Alcohol Use: None Type of Drug Use: None Marital Status: Lives With:: Children Functional capacity: independent ambulation Physical Examination Vital Signs Temp Pulse Resp BP Pulse Ox 98.4 F 129 H 20 145/97 98 07/29/16 09:33 07/29/16 09:33 07/29/16 09:33 07/29/16 09:33 07/29/16 09:33 General: Present: Other (Appears acutely ill she is mildly tachypneic) HEENT: Present: Normocephaly Neck: Present: Supple Neck, Midline Trachea Cardiac: Present: S1/S2 (Tachycardia at about 120 is regular) Lungs: Present: Normal Exam (I did not hear rales or rhonchi) Neuro: Present: Cranial Nerve 2-12 Intact Abdomen: Present: Soft, Active Bowel Sounds, Other (PEG tube looks good) Skin: Present: Clear Extremities: Present: Normal Gait, No Clubbing (No palpable cords), No Cyanosis , No Edema Result/EKG - Labs CBC & BMP: 07/29/16 10:20 07/29/16 10:20 Labs: Laboratory Results - last 24 hr 07/29/16 07/29/16 07/29/16 10:20 10:20 10:20 WBC 4.9 RBC 4.17 Hgb 11.5 L Hct 34.9 L MCV 83.7 L MCH 28 MCHC 33.0 RDW 21.1 H Plt Count 285 MPV 9.0 L Neut % (Auto) 73.4 Lymph % (Auto) 3.7 L Candler % (Auto) 21.9 H Eos % (Auto) 0.0 Baso % (Auto) 0.0 Neut # (Auto) 3.6 Lymph # (Auto) 0.2 L Candler # (Auto) 1.1 H Eos # (Auto) 0.0 Baso # (Auto) 0.0 Total Counted 100 Immature Gran % 1.0 Nucleated RBC % 0.0 Immature Gran # 0.05 Segmented Neutrophils 86 H Band Neutrophils 1 Lymphocytes 1 L Monocytes 12 Nucleated RBCs # 0.00 Platelet Estimate Normal Hypochromasia 1+ Microcytosis 1+ INR 1.2 PT Patient/Control Mix 12.3 Circ Anticoag PTT 30.4 Sodium 132 L Potassium 4.5 Chloride 98 Carbon Dioxide 27 Anion Gap 11.5 BUN 14 Creatinine 0.50 L GFR Calculation 116 BUN/Creatinine Ratio 28.00 H Glucose 119 H Calculated Osmolality 265.5 L Lactic Acid Calcium 8.5 Total Bilirubin 0.40 AST 46 H ALT 46 Alkaline Phosphatase 89 Troponin I 0.032 B-Natriuretic Peptide Total Protein 7.3 Albumin 2.2 L Globulin 5.1 H Albumin/Globulin Ratio 0.4 L 07/29/16 07/29/16 10:20 10:20 WBC RBC Hgb Hct MCV MCH MCHC RDW Plt Count MPV Neut % (Auto) Lymph % (Auto) Candler % (Auto) Eos % (Auto) Baso % (Auto) Neut # (Auto) Lymph # (Auto) Candler # (Auto) Eos # (Auto) Baso # (Auto) Total Counted Immature Gran % Nucleated RBC % Immature Gran # Segmented Neutrophils Band Neutrophils Lymphocytes Monocytes Nucleated RBCs # Platelet Estimate Hypochromasia Microcytosis INR PT Patient/Control Mix Circ Anticoag PTT Sodium Potassium Chloride Carbon Dioxide Anion Gap BUN Creatinine GFR Calculation BUN/Creatinine Ratio Glucose Calculated Osmolality Lactic Acid 2.0 Calcium Total Bilirubin AST ALT Alkaline Phosphatase Troponin I B-Natriuretic Peptide 1420 H Total Protein Albumin Globulin Albumin/Globulin Ratio - EKG EKG results: interpreted by me (As per HPI)
[2016-07-29] MEDS ORDERED: ENOXAPARIN 80 MG/0.8 ML SYRINGE SUBCUT ONE (12:07)
--- NOTE | 2016-07-29 12:47 | Ultrasound Report ---
Referring physician: Ras Gavin Exam: Bilateral lower extremity venous ultrasound Date: July 29, 2016 Comparison: Bilateral lower extremity venous ultrasound May 30, 2016 Reason: Bilateral pulmonary emboli, lower extremity edema Technique: Duplex scan of the bilateral lower extremity veins was performed using B-Mode/grayscale imaging, compression, Doppler spectral analysis and color flow. Ultrasound images were captured and stored. Findings: There is occluding thrombus within the right popliteal vein. No thrombus is identified within the bilateral common femoral veins, saphenous veins, superficial femoral veins or left popliteal vein. Impression: 1. Occluding thrombus within the right popliteal vein. 2. No evidence of deep venous thrombosis within the left lower extremity. Dr. Gavin was notified of these findings on July 29, 2016 at 12:30 PM. This is a critical test. PROCEDURE INTERPRETED AT [facility] DEPARTMENT OF RADIOLOGY Final Report Signed by: Dr. Shakir Landaverde
--- NOTE | 2016-07-29 13:48 | IR History and Physical Update ---
IR Pre-Procedure - History and Physical H&P was reviewed, the patient examined and there: are no changes in the patients condition since last H&P was completed. Reason for procedure:: 75 yoF esophageal cancer on chemo and XRT. H/o DVT and PE, was anticoag but had GI bleed about 3 weeks ago and anticoag held. Here w/ progressive DVT. Asked to place IVC filter. - Dictation Physical: refer to H&P completed by admitting physician - Physical Exam Vital Signs: Last Vital Signs Temp 98.4 F 07/29/16 09:33 Pulse 129 H 07/29/16 09:33 Resp 20 07/29/16 09:33 BP 145/97 07/29/16 09:33 Pulse Ox 98 07/29/16 09:33 Mental Status: alert and oriented - Sedation IR anesthesia plan for sedation: none ASA Class: IV - Risks Risks: Procedures explained. Risks discussed include, but not limited to, the following:[ thrombosis] All questions answered. The following alternatives were discussed:[ none] Assessment and Plan - Time spent with patient Time spent with patient: Less than 30 minutes (1) Pulmonary embolism Status: Acute Assessment and plan: A: PE w/ DVT. Contraindication to anticoag w/ recent GI bleed and cancer. P: IVC filter. Family and pt aware this is a permanent placement. Current Visit: No Qualifiers: Chronicity: acute
--- NOTE | 2016-07-29 14:31 | Post Interventional Procedure ---
Pre-op diagnosis: DVT, PE, unable to anticoag Post-op diagnosis: same Procedure: IVC filter Contrast: Omni 350, 20 cc Flouroscopy: 1.6 min Radiologist: Sushil Carcamo Anesthesia: local Specimens: none sent Estimated blood loss: none Complications: none Condition: stable Description/Findings: Right external iliac vein occluded and unable to pass wire to IVC. Accessed left CFV and situated IVC filter w/o difficulty. Assessment and Plan - Time spent with patient Time spent with patient: Less than 30 minutes (1) Pulmonary embolism Status: Acute Assessment and plan: A: PE w/ DVT. Contraindication to anticoag w/ recent GI bleed and cancer. P: IVC filter. Family and pt aware this is a permanent placement. Current Visit: No Qualifiers: Chronicity: acute
--- NOTE | 2016-07-29 16:11 | Interventional Radiology Rpt ---
IR IVC filter placement, US guide vascular access Indication: DVT right leg with PE. Anticoagulation contraindication with recent GI bleed. Esophageal cancer. IVC FILTER PLACEMENT Description: A formal timeout was performed. Maximum sterile barrier technique was used. Both groins were prepped and draped in a sterile fashion. Sonographic evaluation demonstrates a patent and compressible right common femoral vein. 5 cc 1% lidocaine was infused subcutaneously. Under sonographic guidance, a micropuncture needle was advanced into the target vein. A captured sonographic image documents the position of the needle. However, the wire would not advance into the right common femoral vein above the inguinal ligament. Contrast injection via the needle showed occlusion of the right external iliac vein extending into the common femoral vein, likely from chronic DVT. Attention was then turned to left groin. Sonographic evaluation demonstrates a patent and compressible left common femoral vein. 5 cc 1% lidocaine was infused subcutaneously. Under sonographic guidance, a micropuncture needle was advanced into the target vein. A captured sonographic image documents the position of the needle. The needle was exchanged over a wire for a vascular dilator with the tip in the distal IVC. An inferior venacavogram was performed. Normal anatomy was present. The lowest renal vein inflow was identified. The dilator was exchanged over a wire for a Mayra IVC filter sheath. The filter was then advanced and deployed such that the apex is at the lowest renal vein inflow. The deployment apparatus was removed and hemostasis achieved with manual compression. Medications: None. Contrast: Omnipaque 350, 20 cc. Fluoroscopy: 1.6 minutes. Impression: Infrarenal IVC filter placement as described. 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 No evidence of DVT left iliac system. PROCEDURE INTERPRETED AT [facility] DEPARTMENT OF RADIOLOGY Final Report Signed by: Sushil Carcamo M.D.
[2016-07-29] MEDS ORDERED: MAGNESIUM HYDROXIDE SUSP 30 ML UDCUP PO PRN (16:45)
[2016-07-29] MEDS ORDERED: ALUMINUM/MAGNES/SIMETH MAX STR 30 ML UDCUP PO PRN (16:45)
[2016-07-29] MEDS ORDERED: guaiFENesin 200 MG/10 ML UDCUP PO PRN (16:45)
[2016-07-29] MEDS ORDERED: chlorproMAZINE 25 MG TABLET PO PRN (16:45)
[2016-07-29] MEDS ORDERED: chlorproMAZINE INJ 50 MG in SODIUM CHLORIDE 0.9% 100 ML IV PRN (16:45)
[2016-07-29] MEDS ORDERED: ALPRAZolam 0.25 MG TABLET PO PRN (16:45)
[2016-07-29] MEDS ORDERED: chlorproMAZINE INJ 25 MG in SODIUM CHLORIDE 0.9% 100 ML IV PRN (16:45)
[2016-07-29] MEDS ORDERED: PROMETHAZINE INJ 25 MG in SODIUM CHLORIDE 0.9% 50 ML IV PRN (16:45)
[2016-07-29] MEDS ORDERED: TEMAZEPAM 7.5 MG CAPSULE PO PRN (16:45)
[2016-07-29] MEDS ORDERED: ACETAMINOPHEN 325 MG TABLET PO PRN (16:45)
[2016-07-29] MEDS ORDERED: traMADol 50 MG TABLET PO PRN (16:45)
[2016-07-29] MEDS ORDERED: diphenhydrAMINE CAP 25 MG CAPSULE PO PRN (16:45)
[2016-07-29] MEDS ORDERED: ONDANSETRON 4 MG/2 ML VIAL IV PRN (16:45)
[2016-07-29] MEDS ORDERED: MYLANTA/LIDO VISC 2:1 300 ML BOTTLE SWISH/SPIT PRN (16:45)
[2016-07-29] MEDS ORDERED: MYLANTA/LIDO VISC 2:1 300 ML BOTTLE SWISH/SWAL PRN (16:45)
[2016-07-29] MEDS ORDERED: LACTULOSE 20 GM/30 ML UDCUP PO PRN (16:45)
[2016-07-29] MEDS ORDERED: BENZTROPINE 2 MG/2 ML AMP IV PRN (16:45)
[2016-07-29] MEDS ORDERED: LOPERAMIDE 2 MG CAPSULE PO PRN ×2 (16:45)
--- NOTE | 2016-07-29 17:13 | ECHO Report ---
Osiris Melendez Exam Date: 07/29/2016 12:12 Referring Physician: Technologist: Catalina Blood RDCS Age: 75 Ht (in): 64 Wt (lb): 174 Gender: F Exam Location: [facility] Echo Indications: Bilateral pulmonary embolism, Esophogeal CA, Anemia, Dyspnea, unspecified, Essential (primary) hypertension, Chronic fatigue, unspecified, Cough BP: 143 / 98 HR: 87 Rhythm: Sinus Technical Quality: good IMPRESSIONS Left ventricular ejection fraction is estimated at 55 %. There is no regional wall motion abnormality. Diastolic parameters are equivocal. Jtki-ri-lhlvfinr tricuspid valve regurgitation. Tricuspid regurgitation velocities suggest a RVSP of 50 mmHg plus the right atrial pressure. Nmem-du-cmbhlfkm pulmonary valve regurgitation with PA diastolic pressure estimated at 9 mmHg plus the right atrial pressure Right ventricular and atrial enlargement. MEASUREMENTS (Male / Female) Normal Values 2D ECHO LV Diastolic Diameter PLAX 3.7 cm 4.2 - 5.9 / 3.9 - 5.3 cm LV Systolic Diameter PLAX 2.8 cm LV Fractional Shortening PLAX 24.4 % IVS Diastolic Thickness 1.1 cm 0.6 - 1.0 / 0.6 - 0.9 cm LVPW Diastolic Thickness 1.0 cm 0.6 - 1.0 / 0.6 - 0.9 cm RV Internal Dim ED PLAX 3.7 cm Aortic Root Diameter 3.7 cm LA Systolic Diameter LX 3.5 cm 3.0 - 4.0 / 2.7 - 3.8 cm DOPPLER TR Peak Velocity 352.0 cm/s TR Peak Gradient 49.6 mmHg FINDINGS Left Ventricle Normal left ventricular cavity size. Mild left ventricular hypertrophy. Left ventricular ejection fraction is estimated at 55 %. There is no regional wall motion abnormality. Diastolic parameters are equivocal. Right Ventricle Mildly increased right ventricular size. Right Atrium The right atrium is mildly enlarged. Left Atrium The left atrium is normal in size. Mitral Valve Morphologically normal mitral valve without significant stenosis or prolapse. There is no mitral regurgitation. Aortic Valve Aortic valve sclerosis without stenosis. Mild aortic valve regurgitation. Tricuspid Valve Morphologically normal tricuspid valve. Mipd-nd-ypnaugoe tricuspid valve regurgitation. Tricuspid regurgitation velocities suggest a RVSP of 50 mmHg plus the right atrial pressure. Pulmonic Valve Morphologically normal pulmonic valve. Hntu-hi-wzebcuvk pulmonary valve regurgitation. Pericardium Normal pericardium without effusion. Aorta Normal ascending aorta dimension. Ayon Elizabeth (Electronically Signed) Final Date: 29 Jul 2016 17:12
[2016-07-29] MEDS: SODIUM CHLORIDE 0.9% 1,000 ML IV SCH (17:34)
[2016-07-29] MEDS: PANTOPRAZOLE 40 MG VIAL IV SCH (17:34)
[2016-07-29] MEDS: HEPARIN DRIP 25,000 UNITS/500 ML PREMIX IV SCH (17:36)
[2016-07-30 05:59] LABS: Eosinophils % 0.3 % (0.00-10.9); Hematocrit 31.2 VOL% (35.7-47.0); Hemoglobin 9.8 GM/DL (12.0-16.0); Immature Granulocytes % 1.3 %; Immature Granulocytes Absolute 0.05 #; Lymphocytes # 0.1 10*3/uL (1.4-4.0); Lymphocytes % 3.3 % (21.3-54.2); Mean Corpuscular HGB Conc 31.4 GM/DL (32-36); Mean Corpuscular Hemoglobin 27 PG (27-34); Mean Corpuscular Volume 86.4 FL (87-102); Mean Platelet Volume 9.6 FL (9.6-12.0); Monocytes # 0.8 10*3/uL (0.11-0.8); Monocytes % 20.8 % (1.7-12.7); Neutrophils # 2.9 10*3/uL (1.4-7.4); Neutrophils % 74.3 % (38.7-73.9); Platelet Count 254 T/CUMM (130-400); Red Blood Count 3.61 MC/CUMM (3.8-5.5); Red Cell Distribution Width 21.2 % (9.3-17.3); White Blood Count 3.9 T/CUMM (4-12)
[2016-07-30 06:26] LABS: Band Neutrophils 4 % (0-10); Burr Cells Slight; Eosinophils 1 % (0-10); Hypochromasia 1+; Lymphocytes 3 % (20-55); Microcytosis 1+; Ovalocytes Slight; Platelet Estimate Adequate; Segmented Neutrophils 73 % (50-85); Total Cells Counted 100
--- NOTE | 2016-07-30 09:22 | Oncology History&Physical ---
Assessment and Plan (1) Pulmonary embolism Status: Acute Assessment and plan: Continue heparin infusion while monitoring for clinical signs of bleeding and daily hemoglobin testing. If the patient is able to tolerate several days of anticoagulation intravenous then we will consider for transition to oral meds. Current Visit: No Qualifiers: Chronicity: acute History of Present Illness Chief complaint: Shortness of breath History of present illness: Ms. Melendez is a 75 year old female Who presented yesterday to [facility] ER with shortness of breath. She is known to me for esophageal cancer having recently completed chemotherapy and radiation. She was diagnosed around March or April. She had embolism at that time and was anticoagulated up until an episode of anemia and coffee- ground emesis. CT scans showed continued pulmonary embolism yesterday though I cannot say how much of these are new versus chronic. There was also evidence of an acute left lower extremity deep vein thrombosis. For these reasons the patient had an IVC filter placed and was admitted for cautious anticoagulation. She is currently on heparin infusion. She reports her breathing to be improved since admission and she appears comfortable on room air. Her lab work is notable for elevated natruretic peptide. Home Medications Medication Instructions Recorded Confirmed Type Calcium (Carb)/Vit D 600-400 1 tablet PEG DAILY 05/21/16 07/29/16 History [Caltrate 600 + D] Ergocalciferol (Vitamin D2) 50,000 unit PEG SA 05/21/16 07/29/16 History [Vitamin D2] Pantoprazole Tab [Protonix Tab] 40 mg PEG DAILY 05/21/16 07/29/16 History Potassium Chloride [Klor-Con] 40 meq PEG BID 05/21/16 07/29/16 History Aa/Prot/Arginine/C/Zinc/Copper 30 ml PO TID 07/29/16 07/29/16 History [Proteinex Wc Liquid] Albuterol Sulfate [Albuterol Neb] 2.5 mg RESP TX Q4HR PRN 07/29/16 07/29/16 History Albuterol Sulfate [Ventolin HFA] 2 puff INH Q6H PRN 07/29/16 07/29/16 History Magnesium Gluconate Liquid 5 ml PO BID 07/29/16 07/29/16 History [Magonate] Allergies Allergy/AdvReac Type Severity Reaction Status Date / Time No Known Allergies Allergy Verified 06/30/16 21:06 Medical,Surgical,& Family Hx - Medical History Cardio: History of: Hypertension Neurology: No history of: Seizures Respiratory: History of: Respiratory Problems (blood clot in lung 04/2016) Gastrointestinal: History of: Gastrointestinal Bleed (June 2016 while on Xarelto and aspirin), Gastrointestinal Cancer (esophgeal CA), GI Problems (PEG tube) Other: History of: Cancer (esophagus) - Surgical History Abdominal Surgeries: Surgical HX of: Abdominal Surgery, EGD (esophageal ca) Reproductive Surgeries: Surgical HX of;: Breast Surgery (Biopsy), Hysterectomy - Family History Family History: Reports;: Family Hypertension Denies;: Family Cancer - Social History Smoking Status: Never smoker Frequency of Alcohol Use: None Type of Drug Use: None - Constitutional Constitutional: Present: fatigue. Absent: fever(s) - EENT Eye: Absent: blurry vision Ears: Absent: decreased hearing Nose, mouth and throat: Present: dysphagia. Absent: dizziness, epistaxis, neck mass, neck pain - Cardiovascular Cardiovascular ROS IM: Present: as per HPI - Respiratory Respiratory: Present: dyspnea. Absent: wheezing - Gastrointestinal Gastrointestinal: Absent: abdominal pain (PEG tube dependent) - Genitourinary Genitourinary ROS female: Absent: dysuria - Musculoskeletal Musculoskeletal ROS: Absent: back pain Exam - Constitutional Vitals: Period Temp Pulse Resp BP Sys/Nava Pulse Ox Last 24 Hr 97.2 F-98.1 F 102-117 18-22 115-132/73-92 90-97 General appearance: over weight - Head Head Exam: Present: normal inspection, normocephalic, atraumatic - Eye Eye Exam: Present: EOMI. Absent: conjunctival injection, periorbital swelling, scleral icterus Pupils: Present: PERRL - ENT ENT exam: Present: normal external ear exam - Neck Neck exam: Present: normal inspection. Absent: lymphadenopathy - Respiratory Respiratory exam: Present: CTAB. Absent: accessory muscle use, chest wall tenderness - Cardiovascular Cardiovascular exam: Present: RRR - GI/Abdominal GI/Abdominal exam: Present: soft. Absent: ascites, mass, tenderness - Neurological Exam Neurological exam: Present: alert, oriented X3 - Psychiatric Psychiatric exam: Present: normal affect, normal mood - Skin Skin exam: Present: warm, dry Results - Labs CBC & BMP: 07/30/16 04:48 07/29/16 10:20
[2016-07-30] MEDS: PANTOPRAZOLE 40 MG VIAL IV SCH (11:10)
--- NOTE | 2016-07-30 13:29 | Cardiology Progress Note ---
I, Diane Vazquez, RN, am scribing for, and in the presence of, Nany Johnson DO 13 :29. Assessment and Plan - Time spent with patient Time spent with patient: Less than 30 minutes (1) Bilateral pulmonary embolism Status: Acute Assessment and plan: Patient as in my note yesterday he is not a candidate for a cast. I have nothing further to add at this time we will sign off. Please call if needed. The patient's long-term prognosis is very poor Current Visit: Yes (2) Esophageal cancer Status: Chronic Current Visit: Yes (3) Anemia Status: Chronic Current Visit: No Cardiology - PN: Subj Interval history: Ms. Melendez is seen resting in bed in no acute distress. She denies chest pain, shortness of breath, palpitations, dizziness. She is not using any oxygen and tolerating this well. Echocardiogram done yesterday with ejection 55%, mild to moderate tricuspid valve regurgitation, mild to moderate pulmonary valve regurgitation, and right ventricular and atrial enlargement. Venous Doppler done yesterday showed occluding thrombus within the right popliteal vein and no evidence of deep vein thrombosis within the left lower extremity. She had IVC filter placed yesterday. Heparin is currently infusing. Vital signs been stable with blood pressure 122/78, she has been tachycardic with heart rates range from 100 up to 120 throughout the night. Ms. Melendez thinks she feels a little better today. I saw and examined with Ms. Vazquez. Also discussed earlier today with Dr. Hollins. She status post IVC filter placement. She has remained hemodynamically stable but still remains mildly tachypneic and has a resting tachycardia. This is likely multifactorial. Exam (Progress Note) - Constitutional Vitals: Period Temp Pulse Resp BP Sys/Nava Pulse Ox Last 24 Hr 97.2 F-98.1 F 102-117 18-22 115-132/73-92 90-97 General appearance: normal weight, no acute distress - Head Head exam: Absent: abrasion, hematoma - Eye Eye exam: Absent: periorbital swelling, laceration to eyelids - Respiratory Respiratory exam: Present: clear to auscultation bilaterally (Bilateral coarse breath sounds she has suboptimal volume of inspiration but is tachypneic). Absent: accessory muscle use, chest wall tenderness - Cardiovascular Cardiovascular exam: Present: regular rate and rhythm, tachycardia - GI/Abdominal GI/Abdominal exam: Present: normal bowel sounds, soft. Absent: distended, tenderness - Extremities Exam Extremities exam: Absent: edema - Neurological Exam Neurological exam: Present: alert, oriented X3 - Psychiatric Psychiatric exam: Present: flat affect. Absent: agitated - Skin Skin exam: Present: warm, dry Result/EKG - Labs CBC & BMP: 07/30/16 04:48 07/29/16 10:20 Lab Results: I have reviewed the past 24 hour labs Labs: Laboratory Results - last 24 hr 07/29/16 07/29/16 07/30/16 17:54 22:09 04:48 WBC 3.9 L RBC 3.61 L Hgb 9.8 L Hct 31.2 L MCV 86.4 L MCH 27 MCHC 31.4 L RDW 21.2 H Plt Count 254 MPV 9.6 Neut % (Auto) 74.3 H Lymph % (Auto) 3.3 L [place] % (Auto) 20.8 H Eos % (Auto) 0.3 Baso % (Auto) 0.0 Neut # (Auto) 2.9 Lymph # (Auto) 0.1 L [place] # (Auto) 0.8 Eos # (Auto) 0.0 Baso # (Auto) 0.0 Total Counted 100 Immature Gran % 1.3 Nucleated RBC % 0.0 Immature Gran # 0.05 Segmented Neutrophils 73 Band Neutrophils 4 Lymphocytes 3 L Monocytes 19 H Eosinophils 1 Nucleated RBCs # 0.00 Platelet Estimate Adequate Hypochromasia 1+ Microcytosis 1+ Ovalocytes Slight [place] Cells Slight Morphology Comment Circ Anticoag PTT 30.4 46.9 H D 07/30/16 04:48 WBC RBC Hgb Hct MCV MCH MCHC RDW Plt Count MPV Neut % (Auto) Lymph % (Auto) [place] % (Auto) Eos % (Auto) Baso % (Auto) Neut # (Auto) Lymph # (Auto) [place] # (Auto) Eos # (Auto) Baso # (Auto) Total Counted Immature Gran % Nucleated RBC % Immature Gran # Segmented Neutrophils Band Neutrophils Lymphocytes Monocytes Eosinophils Nucleated RBCs # Platelet Estimate Hypochromasia Microcytosis Ovalocytes Hong Cells Morphology Comment Circ Anticoag PTT 118.6 H* - EKG EKG results: interpreted by me EKG shows: tachycardia, sinus rhythm IElizabeth Shea, DO, personally performed the services described in this documentation, ascribed by Diane Vazquez RN in my presence, and it is both accurate and complete .
[2016-07-30] MEDS: HEPARIN DRIP 25,000 UNITS/500 ML PREMIX IV SCH (14:05)
[2016-07-30] MEDS: MULTIVITAMIN LIQUID (CENTRUM) 60 ML BOTTLE PO SCH ×2 (16:55→20:57)
[2016-07-30] MEDS: MAGNESIUM GLUCONATE 200 MG/ML 30 ML/BOTTLE PO SCH (20:57)
[2016-07-30] MEDS: POTASSIUM CHLORIDE 20 MEQ PACK PEG SCH (20:58)
[2016-07-31 04:48] LABS: Basophils % 0.3 % (0.0-0.8); Eosinophils % 0.3 % (0.00-10.9); Hematocrit 28.1 VOL% (35.7-47.0); Hemoglobin 9.3 GM/DL (12.0-16.0); Immature Granulocytes % 1.5 %; Immature Granulocytes Absolute 0.05 #; Lymphocytes # 0.1 10*3/uL (1.4-4.0); Lymphocytes % 4.2 % (21.3-54.2); Mean Corpuscular HGB Conc 33.1 GM/DL (32-36); Mean Corpuscular Hemoglobin 27 PG (27-34); Mean Corpuscular Volume 81.9 FL (87-102); Mean Platelet Volume 9.9 FL (9.6-12.0); Monocytes # 0.7 10*3/uL (0.11-0.8); Monocytes % 20.1 % (1.7-12.7); Neutrophils # 2.5 10*3/uL (1.4-7.4); Neutrophils % 73.6 % (38.7-73.9); Platelet Count 242 T/CUMM (130-400); Red Blood Count 3.43 MC/CUMM (3.8-5.5); Red Cell Distribution Width 20.6 % (9.3-17.3); White Blood Count 3.3 T/CUMM (4-12)
[2016-07-31 05:51] LABS: Band Neutrophils 1 % (0-10); Lymphocytes 3 % (20-55); Myelocytes 1 %; Nucleated Red Blood Cells 1 (0-5); Segmented Neutrophils 84 % (50-85); Total Cells Counted 100
[2016-07-31 05:53] LABS: Ovalocytes 1+; Platelet Estimate Normal
[2016-07-31 05:54] LABS: Hypochromasia Slight
--- NOTE | 2016-07-31 08:00 | Oncology Progress Note ---
Assessment and Plan (1) Pulmonary embolism Status: Acute Assessment and plan: Continue heparin infusion while monitoring for clinical signs of bleeding and daily hemoglobin testing. If the patient is able to tolerate several days of anticoagulation intravenous then we will consider for transition to oral meds. Current Visit: No Qualifiers: Chronicity: acute Oncology Subjective PN Interval history: Patient resting this morning. She has nasal cannula O2 in place but is lying flat. She denies chest pain. Therapeutic heparin levels. Mild change in hematocrit without evidence of bleeding. I have asked her to bring her previously prescribed home supply of anticoagulants for me to review. We may be able to resume these at a modified dose. I have discussed discharge for tomorrow. She has pulmonary congestion and duo nebs are ordered every [address] scan is notable for worsening metastatic disease when compared to earlier. She has no family present at this time. Will broach palliative care prior to discharge. Exam - Constitutional Vitals: Period Temp Pulse Resp BP Sys/Nava Pulse Ox Last 24 Hr 97.6 F-98.1 F 94-113 18-20 135-148/75-94 93-98 Results - Labs CBC & BMP: 07/31/16 03:52 07/29/16 10:20
[2016-07-31] MEDS: MULTIVITAMIN LIQUID (CENTRUM) 60 ML BOTTLE PO SCH ×2 (09:23→16:40)
[2016-07-31] MEDS: MAGNESIUM GLUCONATE 200 MG/ML 30 ML/BOTTLE PO SCH ×2 (09:23→20:17)
[2016-07-31] MEDS: PANTOPRAZOLE 40 MG TABLET PO SCH (09:23)
[2016-07-31] MEDS: POTASSIUM CHLORIDE 20 MEQ PACK PEG SCH ×2 (09:23→20:16)
[2016-07-31] MEDS: PANTOPRAZOLE 40 MG VIAL IV SCH (09:23)
[2016-07-31] MEDS: HEPARIN DRIP 25,000 UNITS/500 ML PREMIX IV SCH (10:12)
[2016-07-31] MEDS: ALBUTEROL/IPRATROPIUM 3 ML NEB RESP TX SCH ×2 (12:05→19:57)
[2016-08-01] MEDS: ALBUTEROL/IPRATROPIUM 3 ML NEB RESP TX SCH ×2 (01:26→06:58)
[2016-08-01 05:24] LABS: Hemoglobin 9.6 GM/DL (12.0-16.0); Lymphocytes # 0.2 10*3/uL (1.4-4.0); Mean Corpuscular Hemoglobin 27 PG (27-34); Red Blood Count 3.51 MC/CUMM (3.8-5.5)
[2016-08-01 05:33] LABS: Basophils % 0.3 % (0.0-0.8); Hematocrit 28.6 VOL% (35.7-47.0); Immature Granulocytes % 1.4 %; Immature Granulocytes Absolute 0.05 #; Lymphocytes % 5.5 % (21.3-54.2); Mean Corpuscular HGB Conc 33.6 GM/DL (32-36); Mean Corpuscular Volume 81.5 FL (87-102); Mean Platelet Volume 9.3 FL (9.6-12.0); Monocytes # 0.6 10*3/uL (0.11-0.8); Monocytes % 17.4 % (1.7-12.7); Neutrophils # 2.6 10*3/uL (1.4-7.4); Neutrophils % 75.4 % (38.7-73.9); Platelet Count 250 T/CUMM (130-400); Red Cell Distribution Width 20.1 % (9.3-17.3); White Blood Count 3.5 T/CUMM (4-12)
[2016-08-01] MEDS: HEPARIN DRIP 25,000 UNITS/500 ML PREMIX IV SCH (05:50)
[2016-08-01 06:02] LABS: Acanthocytes Few; Anisocytosis 1+; Band Neutrophils 2 % (0-10); Hypochromasia 2+; Lymphocytes 5 % (20-55); Macrocytosis 1+; Ovalocytes 1+; Platelet Estimate Normal; Segmented Neutrophils 77 % (50-85); Total Cells Counted 100
[2016-08-01] MEDS: SODIUM CHLORIDE 0.9% 1,000 ML IV SCH (09:41)
--- NOTE | 2016-08-01 10:03 | Discharge Summary ---
Diagnosis - Discharge Diagnosis (1) Pulmonary embolism Status: Acute Discharge Plan - Discharge Medications Continue Magnesium Gluconate Liquid [Magonate] 5 ml PO BID Albuterol Sulfate [Ventolin HFA] 2 puff INH Q6H PRN PRN Reason: Shortness Of Breath/Wheezing Aa/Prot/Arginine/C/Zinc/Copper [Proteinex Wc Liquid] 30 ml PO TID Potassium Chloride [Klor-Con] 40 meq PEG BID Pantoprazole Tab [Protonix Tab] 40 mg PEG DAILY Albuterol Sulfate [Albuterol Neb] 2.5 mg RESP TX Q4HR PRN PRN Reason: Shortness Of Breath Discontinued Calcium (Carb)/Vit D 600-400 [Caltrate 600 + D] 1 tablet PEG DAILY Ergocalciferol (Vitamin D2) [Vitamin D2] 50,000 unit PEG SA - Follow Up or Referral - Forms/Instructions Exam - Constitutional Vitals: Period Temp Pulse Resp BP Sys/Nava Pulse Ox Last 24 Hr 97.4 F-100.7 F 80-112 18-20 138-160/83-93 93-99 Discharge Results Procedures and tests throughout hospitalization: Pending Orders 08/01/16 11:00 PTT [Partial Thromboplastin Time] Routine 08/02/16 04:00 CBC [Comp Blood Count Auto Diff] IN AM Labs on day of discharge: Labs from last 24 hours 08/01/16 08/01/16 07/31/16 05:13 05:13 21:05 WBC 3.5 L RBC 3.51 L Hgb 9.6 L Hct 28.6 L MCV 81.5 L MCH 27 MCHC 33.6 RDW 20.1 H Plt Count 250 MPV 9.3 L Neut % (Auto) 75.4 H Lymph % (Auto) 5.5 L [place] % (Auto) 17.4 H Eos % (Auto) 0.0 Baso % (Auto) 0.3 Neut # (Auto) 2.6 Lymph # (Auto) 0.2 L [place] # (Auto) 0.6 Eos # (Auto) 0.0 Baso # (Auto) 0.0 Total Counted 100 Immature Gran % 1.4 Nucleated RBC % 0.0 Immature Gran # 0.05 Segmented Neutrophils 77 Band Neutrophils 2 Lymphocytes 5 L Monocytes 16 H Nucleated RBCs # 0.00 Platelet Estimate Normal Hypochromasia 2+ Anisocytosis 1+ Macrocytosis 1+ Ovalocytes 1+ Acanthocytes (Spur) Few Circ Anticoag PTT 74.6 H D 61.6 H 07/31/16 14:59 WBC RBC Hgb Hct MCV MCH MCHC RDW Plt Count MPV Neut % (Auto) Lymph % (Auto) [place] % (Auto) Eos % (Auto) Baso % (Auto) Neut # (Auto) Lymph # (Auto) [place] # (Auto) Eos # (Auto) Baso # (Auto) Total Counted Immature Gran % Nucleated RBC % Immature Gran # Segmented Neutrophils Band Neutrophils Lymphocytes Monocytes Nucleated RBCs # Platelet Estimate Hypochromasia Anisocytosis Macrocytosis Ovalocytes Acanthocytes (Spur) Circ Anticoag PTT 75.6 H D DS: Provider Date of admission: 07/29/16 14:52 Patient with esophageal cancer receiving low-dose chemotherapy and radiotherapy. She has 4 treatments of radiation remaining. She was admitted with shortness of breath. She had an elevated cardiac BNP but did not have systolic heart failure. She was found to have acute pulmonary emboli and was taken for IVC filter placement. Her history is notable for a prior episode of embolism around April of this year near the time of her cancer diagnosis. She was anticoagulated with Xarelto at that time but developed gastritis and upper GI bleed in early May at which time anticoagulation was discontinued. Over the last several days the patient has received IV heparin with a low but stable hematocrit. There has been no evidence of GI bleeding. She has appeared comfortable during her hospital stay. Her daughter is at bedside today. Her O2 sats are 93% on room air at rest. We will discharged today on a cautious dose of Xarelto 10 mg. She has 4 radiotherapy treatments remaining which she is welcome to complete. I have discussed that I do not think she is a candidate for aggressive chemotherapy. CT scan while hospitalized showed significant progression of pulmonary metastatic disease the patient and daughter seem to agree with this. We will discuss restarting home health versus home hospice. She is to monitor closely for any signs of bleeding. 2 week follow-up is to be arranged at my office. Primary care physician: . No PCP Attending physician on admission: Sushil Hollins MD Consults: 07/29/16 16:45 Consult to Dietitian [CONS] Routine Reason for Dietitian: Dietary Consult Diet Recommendations TF-Initiate/Manage 07/29/16 16:50 Consult to Pharmacy [CONS] Routine Reason for Pharmacy Consult: Adjust Meds Renal Funct 07/29/16 18:28 Consult to Dietitian [CONS] Routine Reason for Dietitian: Other Consult Comment: 2 vivek hn at home, weight loss Discharging clinician: Sushil Hollins MD
[2016-08-01] MEDS: PANTOPRAZOLE 40 MG VIAL IV SCH (10:07)
[2016-08-01] MEDS: MAGNESIUM GLUCONATE 200 MG/ML 30 ML/BOTTLE PO SCH (10:13)
[2016-08-01] MEDS: POTASSIUM CHLORIDE 20 MEQ PACK PEG SCH (10:13)
[2016-08-01] MEDS: PANTOPRAZOLE 40 MG TABLET PO SCH (10:16)
[2016-08-01 13:07] VITALS: BP 140/92
== END 2016-08-01 13:41 | disposition hospice, home (50) | DRG 167 ==
LOC: N.ED 09:15 → N.EDINP 14:52 → N.4E 16:44
PROVIDERS: ADMIT Specialist; ATTEND Specialist